=== PATIENT | male | born 1960 | race African-American/Black ===

== ENCOUNTER 2016-11-27 09:55 | Emergency (ER) | payer OTHER ==
[~2016-11-27] VITALS: Ht 172.7 cm; Wt 66.0 kg
[~2016-11-27 09:55] MED LIST: 1-ME1LIQ OR; ALBU6.7H INH; ASPI81TA82 PO; CLON.1T PO; CORE25TA PO; ENAL20TA PO; OMEP20CA5 PO; POTASSIUM; SIMV80TA OR; TEMA15CA PO; TESS200C PO; VITAMIN D; ZITH250T PO
[2016-11-27 09:57] VITALS: BP 181/151; PULSE 92; RESP 17; TEMP 98.2; O2SAT 99
[2016-11-27 09:58] VITALS: BP 150/140
[2016-11-27] MEDS ORDERED: ENALAPRILAT 2.5 MG/2 ML VIAL IV PUSH ONE (10:30)
[2016-11-27 11:02] LABS: AUTOMATED NEUTROPHIL # 3.3 TH/MM3 (1.8-7.7); BASOPHIL # 0.1 TH/MM3 (0-0.2); BASOPHIL % 1.3 % (0.0-2.0); EOSINOPHIL % 0.8 % (0.0-4.0); HEMATOCRIT 47.4 % (39.0-51.0); HEMO FLAGS DIFF FINAL; LYMPH % 20.3 % (9.0-44.0); LYMPHOCYTE # 1.1 TH/MM3 (1.0-4.8); MEAN CELL VOLUME 94.3 FL (80.0-100.0); MEAN CORPUSCULAR HGB CONC 33.9 % (32.0-36.0); MONO % 15.3 % (0.0-8.0); NEUT % 62.3 % (16.0-70.0); PLATELET COUNT 126 TH/MM3 (150-450); RED BLOOD COUNT 5.03 MIL/MM3 (4.50-5.90); RED CELL DISTRIBUTION WIDTH 14.6 % (11.6-17.2); WHITE BLOOD COUNT 5.2 TH/MM3 (4.0-11.0)
[2016-11-27 11:21] LABS: ALKALINE PHOSPHATASE 132 U/L (45-117); ALT (GPT) 16 U/L (12-78); ANION GAP 7 MEQ/L (5-15); AST (GOT) 18 U/L (15-37); BICARBONATE 25.2 MEQ/L (21.0-32.0); BLOOD UREA NITROGEN 13 MG/DL (7-18); CHLORIDE 110 MEQ/L (98-107); GLOMERULAR FILTRATION RATE 64 ML/MIN (>89); POTASSIUM 3.2 MEQ/L (3.5-5.1); SODIUM (NA) 142 MEQ/L (136-145); TOTAL BILIRUBIN ADULT 0.5 MG/DL (0.2-1.0)
[2016-11-27 11:34] VITALS: BP 210/110
[2016-11-27 11:35] VITALS: BP 216/110
[2016-11-27] MEDS ORDERED: AMLO10TA2 PO (11:41)
--- NOTE | 2016-11-27 11:41 | PD ---
HPI Chief Complaint: Hypertension Time Seen by Provider: 10:22 Travel History International Travel<30 days: No Contact w/Intl Traveler<30days: No Traveled to known affect area: No History of Present Illness HPI The 56-year-old man who presents emergency department because of elevated blood pressure. Patient has a history of high blood pressure but hasn't seen a doctor been on medicines for for quite some time because he didn't have insurance. 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 He was told he should come to the emergency department. He otherwise has no symptoms. No headache, no chest pain, no urinary changes. He otherwise has been in his usual state of health. History Past Medical History Narrative Medical Hypertension Peripheral vascular disease Tobacco use Tetanus Vaccination: < 5 Years Influenza Vaccination: No Social History Alcohol Use: No Tobacco Use: Yes (10 per day) Allergies-Medications (Allergen,Severity, Reaction): Coded Allergies: Lasix (Verified Allergy, Severe, SWELLING, 11/27/16) Reported Meds & Prescriptions Reported Meds & Active Scripts Active No Active Prescriptions or Reported Medications Review of Systems Except as stated in HPI: all other systems reviewed are Neg Physical Exam Narrative GENERAL: Well-appearing 56-year-old man, no acute distress. SKIN: Focused skin assessment warm/dry. HEAD: Atraumatic. Normocephalic. EYES: Pupils equal and round. No scleral icterus. No injection or drainage. ENT: No nasal bleeding or discharge. Mucous membranes pink and moist. NECK: Trachea midline. No JVD. CARDIOVASCULAR: Regular rate and rhythm. No murmur appreciated. RESPIRATORY: No accessory muscle use. Clear to auscultation. Breath sounds equal bilaterally. GASTROINTESTINAL: Abdomen soft, non-tender, nondistended. Hepatic and splenic margins not palpable. MUSCULOSKELETAL: No obvious deformities. No clubbing. No cyanosis. No edema. NEUROLOGICAL: Awake and alert. No obvious cranial nerve deficits. Motor grossly within normal limits. Normal speech. PSYCHIATRIC: Appropriate mood and affect; insight and judgment normal. Data Data Last Documented VS Vital Signs Date Time Temp Pulse Resp B/P Pulse Ox O2 Delivery O2 Flow Rate FiO2 11/27/16 11:35 216/110 11/27/16 10:21 17 Room Air 11/27/16 09:57 98.2 92 99 Orders Enalaprilat Inj (Vasotec Inj) (11/27/16 10:30) Amlodipine (Norvasc) (11/27/16 10:30) Complete Blood Count With Diff (11/27/16 10:30) Comprehensive Metabolic Panel (11/27/16 10:30) Electrocardiogram (11/27/16 ) Iv Access Insert/Monitor (11/27/16 10:30) Labs Laboratory Tests Test 11/27/16 10:40 White Blood Count 5.2 TH/MM3 Red Blood Count 5.03 MIL/MM3 Hemoglobin 16.1 GM/DL Hematocrit 47.4 % Mean Corpuscular Volume 94.3 FL Mean Corpuscular Hemoglobin 32.0 PG Mean Corpuscular Hemoglobin 33.9 % Concent Red Cell Distribution Width 14.6 % Platelet Count 126 TH/MM3 Mean Platelet Volume 11.4 FL Neutrophils (%) (Auto) 62.3 % Lymphocytes (%) (Auto) 20.3 % Monocytes (%) (Auto) 15.3 % Eosinophils (%) (Auto) 0.8 % Basophils (%) (Auto) 1.3 % Neutrophils # (Auto) 3.3 TH/MM3 Lymphocytes # (Auto) 1.1 TH/MM3 Monocytes # (Auto) 0.8 TH/MM3 Eosinophils # (Auto) 0.0 TH/MM3 Basophils # (Auto) 0.1 TH/MM3 CBC Comment DIFF FINAL Differential Comment Sodium Level 142 MEQ/L Potassium Level 3.2 MEQ/L Chloride Level 110 MEQ/L Carbon Dioxide Level 25.2 MEQ/L Anion Gap 7 MEQ/L Blood Urea Nitrogen 13 MG/DL Creatinine 1.38 MG/DL Estimat Glomerular Filtration 64 ML/MIN Rate Random Glucose 96 MG/DL Calcium Level 9.3 MG/DL Total Bilirubin 0.5 MG/DL Aspartate Amino Transf 18 U/L (AST/SGOT) Alanine Aminotransferase 16 U/L (ALT/SGPT) Alkaline Phosphatase 132 U/L Total Protein 7.6 GM/DL Albumin 3.9 GM/DL [facility] Medical Decision Making Medical Screen Exam Complete: Yes Emergency Medical Condition: Yes Interpretation(s) My review of EKG: Normal sinus rhythm at a rate of 80, normal axis, normal intervals, anterior precordial ST elevations with lateral T wave inversions suggestive of LVH. P pulmonale. LABS: CBC remarkable for low platelet count. CMP remarkable for mildly elevated creatinine. Differential Diagnosis Symptomatic hypertension, hypertensive crisis, hypertensive urgency, renal failure, other Narrative Course Medical decision making 56-year-old male with markedly elevated blood pressure with no symptoms. Labs and EKG are unremarkable. EKG does show evidence of LVH which is expected. Patient will need for pressure control. He is [facility] now. He should be out of easy follow-up. We'll recommend that he take amlodipine 10 mg as prescribed. He was given a dose of IV enalapril here with good effect and will start amlodipine today and tomorrow. Recommend 48 hour repeat blood pressure check. Diagnosis Primary Impression: Hypertension Additional Instructions: Follow-up with your primary physician or with the [facility] urgent care in 48 hours for repeat blood pressure check. Take amlodipine as prescribed starting tomorrow. Return to the emergency department immediately for any chest pain, trouble breathing, or any other new or worsening symptoms. Med/Other Pt SpecificInfo: Prescription(s) given Scripts Amlodipine 10 Mg Tab10 Mg PO DAILY #30 TAB Ref 0 Prov:Amador Torres MD 11/27/16 Disposition: 01 DISCHARGE HOME Condition: Stable Amador Torres MD Nov 27, 2016 11:41
[2016-11-27 11:47] VITALS: BP 200/100; TEMP 97.8
--- NOTE | 2016-11-28 13:05 | EKG ---
Date Performed: 11/27/2016 Time Performed: 10:50:07 PTAGE: 56 years EKG: Sinus rhythm RIGHT ATRIAL ENLARGEMENT POSSIBLE LEFT ATRIAL ENLARGEMENT T-WAVE ABNORMALITY, CONSIDER LATERAL ISCHE FRANK ABNORMAL ECG PREVIOUS TRACING : 08/15/2012 01.24 Compared to previous tracing, heart rate has increased. DOCTOR: Hoang Banerjee Interpretating Date/Time 11/28/2016 13:05:11
== END 2016-11-27 11:47 | disposition home or self-care (01) ==
LOC: NEPD 09:55
DX: I10 Essential (primary) hypertension (principal); I73.9 Peripheral vascular disease, unspecified; R94.31 Abnormal electrocardiogram [ECG] [EKG]; R04.0 Epistaxis; Z72.0 Tobacco use
CPT/HCPCS: 80053; 85025; 93005; 96374

== ENCOUNTER 2016-12-19 10:33 | Emergency (ER) | payer OTHER ==
[~2016-12-19] VITALS: Ht 172.7 cm; Wt 64.0 kg
[~2016-12-19 10:33] MED LIST changes: -1-ME1LIQ OR; -ALBU6.7H INH; +AMLO10TA2 PO; -ASPI81TA82 PO; -CLON.1T PO; -CORE25TA PO; -ENAL20TA PO; -OMEP20CA5 PO; -POTASSIUM; -SIMV80TA OR; -TEMA15CA PO; -TESS200C PO; -VITAMIN D; -ZITH250T PO
[2016-12-19 10:34] VITALS: BP 184/113; PULSE 67; RESP 16; TEMP 98.5; O2SAT 98
[2016-12-19] MEDS ORDERED: ENAL10TA PO ×2 (10:50)
[2016-12-19] MEDS ORDERED: AMLO10TA2 PO (10:50)
[2016-12-19] MEDS ORDERED: SIMV10TA PO (10:50)
[2016-12-19] MEDS ORDERED: CARV12.52 PO (10:50)
[2016-12-19 10:56] VITALS: BP 183/110
[2016-12-19 11:07] VITALS: BP 172/105
[2016-12-19] MEDS ORDERED: cloNIDine HCL 0.1 MG TAB PO ONE (11:15)
[2016-12-19 11:31] VITALS: BP 159/104
--- NOTE | 2016-12-19 11:47 | PD ---
HPI Chief Complaint: Abnormal Results Time Seen by Provider: 10:47 Travel History International Travel<30 days: No Contact w/Intl Traveler<30days: No Traveled to known affect area: No History of Present Illness HPI Well 56-year-old male presents emergent from complaining of elevated blood pressure leg pain. He is getting claudication symptoms of walking 15-20 feet. He is an appointment with a vascular surgeon been on for another week or so. Blood pressures also been elevated. He just started enalapril. History Past Medical History Narrative Medical Hypertension Peripheral vascular disease Tobacco use Social History Alcohol Use: No Tobacco Use: Yes (5 per day) Allergies-Medications (Allergen,Severity, Reaction): Coded Allergies: Lasix (Verified Allergy, Severe, SWELLING, 12/19/16) Reported Meds & Prescriptions Reported Meds & Active Scripts Active Reported Enalapril (Enalapril Maleate) 10 Mg Tab 10 Mg PO DAILY Enalapril (Enalapril Maleate) 10 Mg Tab 10 Mg PO BID Amlodipine (Amlodipine Besylate) 10 Mg Tab 10 Mg PO DAILY Carvedilol 12.5 Mg Tab 12.5 Mg PO BID Simvastatin 10 Mg Tab 10 Mg PO BID Review of Systems Except as stated in HPI: all other systems reviewed are Neg Physical Exam Narrative GENERAL: Well-appearing 56 year-old woman, no acute distress. SKIN: Warm and dry. CARDIOVASCULAR: Warm and well perfused. RESPIRATORY: Normal rate and effort. MUSCULOSKELETAL: Both legs are warm and well perfused. Pulses are diminished. There are some chest x-ray vascular disease with hair loss. NEUROLOGICAL: Awake and alert. No gross deficits. Data Data Last Documented VS Vital Signs Date Time Temp Pulse Resp B/P Pulse Ox O2 Delivery O2 Flow Rate FiO2 12/19/16 11:31 159/104 12/19/16 10:34 98.5 67 16 98 Room Air Orders Clonidine (Catapres) (12/19/16 11:15) MDM Medical Decision Making Medical Screen Exam Complete: Yes Emergency Medical Condition: Yes Differential Diagnosis Vascular disease, hypertension, arterial especially, other Narrative Course Medical decision making Is a 56-year-old who presents emergent part with leg pain and claudication. He isn't follow-up with vascular disease. There is no acute occlusion arterial insufficiency now. Blood pressures also elevated. He just started on enalapril. I recommended daily enalapril more time. His appointment with his primary physician tomorrow. Diagnosis Primary Impression: Hypertension Additional Impression: Peripheral arterial disease Additional Instructions: Continue current medications. Keep a log of her blood pressures. Follow-up of your primary physician tomorrow as scheduled. Follow-up with vascular surgery as scheduled. Return to the emergency department for any new or worsening symptoms. Stop smoking. Med/Other Pt SpecificInfo: Prescription(s) given Disposition: 01 DISCHARGE HOME Condition: Stable Amador Torres MD December 19, 2016 11:47
[2016-12-19 11:57] VITALS: BP 180/100
== END 2016-12-19 12:17 | disposition home or self-care (01) ==
LOC: NEPD 10:33
DX: I10 Essential (primary) hypertension (principal); I73.9 Peripheral vascular disease, unspecified; Z72.0 Tobacco use
CPT/HCPCS: 99283

== ENCOUNTER 2016-12-23 19:54 | Inpatient (IN) | payer OTHER ==
[~2016-12-23] VITALS: Ht 172.7 cm; Wt 66.8 kg
[~2016-12-23 19:54] MED LIST changes: +CARV12.52 PO; +ENAL10TA PO; +SIMV10TA PO
[2016-12-23 19:56] VITALS: BP 157/92; PULSE 61; RESP 16; TEMP 98.6; O2SAT 99
[2016-12-23] MEDS ORDERED: SODIUM CHLORIDE 0.9% FLUSH 10 ML FLUSH IVF PRN (20:30)
--- NOTE | 2016-12-23 20:34 | PD ---
HPI Chief Complaint: Neuro Symptoms/ Deficits Time Seen by Provider: 20:20 Travel History International Travel<30 days: No Contact w/Intl Traveler<30days: No Traveled to known affect area: No History of Present Illness HPI This is a 56-year-old male with history of hypertension, peripheral vascular disease with intermittent claudication symptoms, presents for evaluation of left arm and leg weakness and numbness. Symptom onset 1 week ago. He reports that he feels subtle weakness when for example holding drinks or lifting things with his left arm as well as when he is walking he feels like he is dragging his leg some. He says that this is different from his baseline burning pain that he has in the left leg with longer walks secondary to his peripheral vascular disease. He denies any headache, blurred vision, facial droop, dizziness, lack of coordination, nausea or vomiting, chest pain or shortness of breath, abdominal pain. No history of CVA in the past. No other complaints. PFSH Past Medical History Asthma: Yes Blood Disorders: No Cancer: No Cardiovascular Problems: Yes (STENTS PLACED) High Cholesterol: Yes Chemotherapy: No Diminished Hearing: No Endocrine: No Gastrointestinal Disorders: Yes GERD: Yes Genitourinary: No Hypertension: Yes Inguinal Hernia: Yes Musculoskeletal: No Neurologic: No Psychiatric: No Reproductive: No Respiratory: No Radiation Therapy: No Past Surgical History Abdominal Surgery: Yes (HERNIA INGINAL L) AICD: No Arteriovenous Shunt: No Coronary Stent: Yes (BARD LUMINEXX BILIARY STENT PLACED 07-12) Insulin Pump: No Joint Replacement: No Pacemaker: No Other Surgery: Yes (BARD LUMINEXX BILIARY STENT PLACED 07-12) Social History Alcohol Use: No Tobacco Use: Yes (1/2PPD) Substance Use: No Allergies-Medications (Allergen,Severity, Reaction): Coded Allergies: Lasix (Verified Allergy, Severe, SWELLING, 12/24/16) Reported Meds & Prescriptions Reported Meds & Active Scripts Active Reported Enalapril (Enalapril Maleate) 10 Mg Tab 10 Mg PO DAILY Amlodipine (Amlodipine Besylate) 10 Mg Tab 10 Mg PO DAILY Carvedilol 12.5 Mg Tab 12.5 Mg PO BID Simvastatin 10 Mg Tab 10 Mg PO BID Review of Systems Except as stated in HPI: all other systems reviewed are Neg Physical Exam Narrative GENERAL: Pleasant well-developed well-nourished male in no acute distress SKIN: Warm and dry. HEAD: Atraumatic. Normocephalic. EYES: Pupils equal and round. No scleral icterus. No injection or drainage. ENT: No nasal bleeding or discharge. Mucous membranes pink and moist. NECK: Trachea midline. No JVD. CARDIOVASCULAR: Regular rate and rhythm. No murmur appreciated. RESPIRATORY: No accessory muscle use. Clear to auscultation. Breath sounds equal bilaterally. GASTROINTESTINAL: Abdomen soft, non-tender, nondistended. Hepatic and splenic margins not palpable. MUSCULOSKELETAL: No obvious deformities. 4 out of 5 muscle strength left hip flexion, left arm flexion and extension. 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 2+ dorsalis pedis and posterior tibial pulses bilaterally. No lower extremity edema. NEUROLOGICAL: Awake and alert. No obvious cranial nerve deficits. Motor grossly within normal limits. Normal speech. PSYCHIATRIC: Appropriate mood and affect; insight and judgment normal. Data Data Last Documented VS Vital Signs Date Time Temp Pulse Resp B/P Pulse Ox O2 Delivery O2 Flow Rate FiO2 12/23/16 22:57 58 16 160/77 98 12/23/16 20:41 Room Air 12/23/16 19:56 98.6 Orders Electrocardiogram (12/23/16 20:30) Prothrombin Time / Inr (Pt) (12/23/16 20:30) Act Partial Throm Time (Ptt) (12/23/16 20:30) Complete Blood Count With Diff (12/23/16 20:30) Comprehensive Metabolic Panel (12/23/16 20:30) Creatine Kinase (Cpk) (12/23/16 20:30) Troponin I (12/23/16 20:30) Ecg Monitoring (12/23/16 20:30) Iv Access Insert/Monitor (12/23/16 20:30) Oximetry (12/23/16 20:30) Sodium Chloride 0.9% Flush (Ns Flush) (12/23/16 20:30) Mri Brain W/O Contrast (12/23/16 ) Consult Neurology (12/23/16 ) Admit Order (Ed Use Only) (12/23/16 23:09) Labs Laboratory Tests Test 12/23/16 19:37 White Blood Count 6.2 TH/MM3 Red Blood Count 4.87 MIL/MM3 Hemoglobin 15.1 GM/DL Hematocrit 45.1 % Mean Corpuscular Volume 92.7 FL Mean Corpuscular Hemoglobin 31.0 PG Mean Corpuscular Hemoglobin 33.5 % Concent Red Cell Distribution Width 14.4 % Platelet Count 169 TH/MM3 Mean Platelet Volume 10.4 FL Neutrophils (%) (Auto) 56.8 % Lymphocytes (%) (Auto) 30.8 % Monocytes (%) (Auto) 8.2 % Eosinophils (%) (Auto) 2.8 % Basophils (%) (Auto) 1.4 % Neutrophils # (Auto) 3.5 TH/MM3 Lymphocytes # (Auto) 1.9 TH/MM3 Monocytes # (Auto) 0.5 TH/MM3 Eosinophils # (Auto) 0.2 TH/MM3 Basophils # (Auto) 0.1 TH/MM3 CBC Comment DIFF FINAL Differential Comment Prothrombin Time 10.8 SEC Prothromb Time International 1.0 RATIO Ratio Activated Partial 29.0 SEC Thromboplast Time Sodium Level 144 MEQ/L Potassium Level 3.5 MEQ/L Chloride Level 109 MEQ/L Carbon Dioxide Level 27.2 MEQ/L Anion Gap 8 MEQ/L Blood Urea Nitrogen 14 MG/DL Creatinine 1.32 MG/DL Estimat Glomerular Filtration 68 ML/MIN Rate Random Glucose 87 MG/DL Calcium Level 9.1 MG/DL Total Bilirubin 0.5 MG/DL Aspartate Amino Transf 13 U/L (AST/SGOT) Alanine Aminotransferase 14 U/L (ALT/SGPT) Alkaline Phosphatase 125 U/L Total Creatine Kinase 85 U/L Troponin I LESS THAN 0.02 NG/ML Total Protein 7.1 GM/DL Albumin 3.7 GM/DL [facility] Medical Decision Making Medical Screen Exam Complete: Yes Emergency Medical Condition: Yes Medical Record Reviewed: Yes Interpretation(s) ekg sinus bradycardia, rate 53 Differential Diagnosis Plexopathy, radiculopathy, peripheral vascular disease, CVA, TIA Narrative Course 56-year-old male with left arm and leg weakness and numbness for 1 week, no other neurologic deficits. On examination he has 4-5 muscle strength in the left upper and lower extremity, primarily in left hip flexion and left arm flexion and extension. Lab work reveals a creatinine of 1.32. MRI of the brain reveals a small focal area of acute lacunar infarct of the medial right basal ganglia. Neurology will be consult. The patient does currently take a baby aspirin on a daily basis. Dr. Mcgarry discussed with the on-call neurologist Dr. Hurtado who would like the patient to be admitted. The patient is agreeable. Diagnosis Primary Impression: CVA (cerebral vascular accident) Qualified Code: I63.9 - Cerebrovascular accident (CVA), unspecified mechanism Admitting Information Admitting Physician Requests: Admit Dm Turner December 23, 2016 20:34
[2016-12-23 20:41] VITALS: BP 155/95; PULSE 65; RESP 16; O2SAT 98
[2016-12-23 21:01] LABS: AUTOMATED NEUTROPHIL # 3.5 TH/MM3 (1.8-7.7); BASOPHIL # 0.1 TH/MM3 (0-0.2); BASOPHIL % 1.4 % (0.0-2.0); EOSINOPHIL # 0.2 TH/MM3 (0-0.4); EOSINOPHIL % 2.8 % (0.0-4.0); HEMATOCRIT 45.1 % (39.0-51.0); HEMO FLAGS DIFF FINAL; LYMPH % 30.8 % (9.0-44.0); LYMPHOCYTE # 1.9 TH/MM3 (1.0-4.8); MEAN CELL VOLUME 92.7 FL (80.0-100.0); MEAN CORPUSCULAR HGB CONC 33.5 % (32.0-36.0); MONO % 8.2 % (0.0-8.0); NEUT % 56.8 % (16.0-70.0); PLATELET COUNT 169 TH/MM3 (150-450); RED BLOOD COUNT 4.87 MIL/MM3 (4.50-5.90); RED CELL DISTRIBUTION WIDTH 14.4 % (11.6-17.2); WHITE BLOOD COUNT 6.2 TH/MM3 (4.0-11.0)
[2016-12-23 21:14] LABS: PROTHROMBIN TIME - PATIENT 10.8 SEC (9.8-11.6)
[2016-12-23 21:24] LABS: ANION GAP 8 MEQ/L (5-15); AST (GOT) 13 U/L (15-37); BICARBONATE 27.2 MEQ/L (21.0-32.0); BLOOD UREA NITROGEN 14 MG/DL (7-18); CHLORIDE 109 MEQ/L (98-107); GLOMERULAR FILTRATION RATE 68 ML/MIN (>89); POTASSIUM 3.5 MEQ/L (3.5-5.1); SODIUM (NA) 144 MEQ/L (136-145)
[2016-12-23 21:29] LABS: ALKALINE PHOSPHATASE 125 U/L (45-117); ALT (GPT) 14 U/L (12-78); TOTAL BILIRUBIN ADULT 0.5 MG/DL (0.2-1.0)
[2016-12-23 21:30] LABS: CREATINE KINASE 85 U/L (39-308)
--- NOTE | 2016-12-23 22:25 | RADRPT ---
EXAM DATE/TIME: 12/23/2016 21:34 [facility] COMPARISON: No previous studies available for comparison. INDICATIONS : Left sided weakness. MEDICAL HISTORY : Hypertension. Peripheral vascular disease. SURGICAL HISTORY : Inguinal hernia repair. ENCOUNTER: Initial ACUITY: 1 day PAIN SCORE: 0/10 LOCATION: cranial TECHNIQUE: Multiplanar, multisequence MRI of the brain was performed without contrast. FINDINGS: CEREBRUM: The ventricles are normal for age. There is a small 0.7 cm area of signal abnormality on the diffusi on weighted images seen at the medial right basal ganglia/genu of the internal capsule. This likely r epresents a recent acute lacunar infarct. Immediately superior to this, there appears to be a 1.2 cm area of prior infarction. This is seen as a cystic area primarily involving the right periventricular white matter and caudate. There is some suspected gliosis seen as increased signal on the flair felipe ges around the old infarct. No evidence of midline shift, mass lesion, hemorrhage. No extraaxial flu id collections are seen. The pituitary gland and suprasellar cistern are normal in configuration. WHITE MATTER: There are scattered areas of focal signal abnormality within the cerebral white matter. POSTERIOR FOSSA: The cerebellum and brainstem are intact. The 4th ventricle is midline. The cerebellopontine angle is unremarkable. The cerebellar tonsils are normal in position. EXTRACRANIAL: The visualized portions of the orbits are unremarkable. There is focal right maxillary sinus disease. CONCLUSION: Small focal area of acute lacunar infarction at the medial right basal ganglia/genu of the internal c apsule. This is seen adjacent to an older area of infarction involving the right periventricular whit e matter and caudate with surrounding suspected gliosis. Eduardo Mckeon MD on December 23, 2016 at 22:16 Board Certified Radiologist. This report was verified electronically.
[2016-12-23 22:57] VITALS: BP 160/77; PULSE 58; RESP 16; O2SAT 98
--- NOTE | 2016-12-23 23:22 | HHI.HP ---
HPI Service [facility] Hospitalists Primary Care Physician Ambreen Perry MD Admission Diagnosis CVA Chief Complaint: 1 week left upper and lower extremity weakness Travel History International Travel<30 Days: No Contact w/Intl Traveler <30 Da: No Traveled to Known Affected Are: No History of Present Illness This is a 56-year-old male with history of hypertension, peripheral vascular disease with intermittent claudication symptoms, presents for evaluation of left arm and leg weakness and numbness. Symptom onset 1 week ago. He reports that he feels subtle weakness when for example holding drinks or lifting things with his left arm as well as when he is walking he feels like he is dragging his leg some. He says that this is different from his baseline burning pain that he has in the left leg with longer walks secondary to his peripheral vascular disease. He denies any headache, blurred vision, facial droop, dizziness, lack of coordination, nausea or vomiting, chest pain or shortness of breath, abdominal pain. No history of CVA in the past. No other complaints. Patient had MRI in er which showed acute cva lacunar infarct rt basal ganglion, case discussed with neurology increase asa to 325 and admit for further evaluation. Review of Systems Neurologic: COMPLAINS OF: Localized weakness Past Family Social History Past Medical History hypertension,hyperlipidemia,cad gerd Past Surgical History lt hernia,stent Reported Medications [id number],norvasc 10 coreg 12.5 bid,simvasatin 10 bid Allergies: Coded Allergies: Lasix (Verified Allergy, Severe, SWELLING, 12/23/16) Social History smokes 1/2 ppd Physical Exam Vital Signs Vital Signs Date Time Temp Pulse Resp B/P Pulse Ox O2 Delivery O2 Flow Rate FiO2 12/23/16 22:57 58 16 160/77 98 12/23/16 20:41 98 Room Air 12/23/16 20:41 65 16 155/95 98 Room Air 12/23/16 20:41 65 16 155/95 98 Room Air 12/23/16 19:56 98.6 61 16 157/92 99 Room Air Physical Exam GENERAL: This is a well-nourished, well-developed patient, in no apparent distress. SKIN: No rashes, ecchymoses or lesions. Cool and dry. HEAD: Atraumatic. Normocephalic. No temporal or scalp tenderness. EYES: Pupils equal round and reactive. Extraocular motions intact. No scleral icterus. No injection or drainage. ENT: Nose without bleeding, purulent drainage or septal hematoma. Throat without erythema, tonsillar hypertrophy or exudate. Uvula midline. Airway patent. NECK: Trachea midline. No JVD or lymphadenopathy. Supple, nontender, no meningeal signs. CARDIOVASCULAR: Regular rate and rhythm without murmurs, gallops, or rubs. RESPIRATORY: Clear to auscultation. Breath sounds equal bilaterally. No wheezes , rales, or rhonchi. GASTROINTESTINAL: Abdomen soft, non-tender, nondistended. No hepato-splenomegaly , or palpable masses. No guarding. MUSCULOSKELETAL: Extremities without clubbing, cyanosis, or edema. No joint tenderness, effusion, or edema noted. No calf tenderness. Negative Homans sign bilaterally. NEUROLOGICAL: Awake and alert. Cranial nerves II through XII intact. Motor and sensory grossly within normal limits. 4 out of 5 muscle strength rt upper and lower extremities Normal speech. Laboratory Laboratory Tests Test 12/23/16 19:37 White Blood Count 6.2 Red Blood Count 4.87 Hemoglobin 15.1 Hematocrit 45.1 Mean Corpuscular Volume 92.7 Mean Corpuscular Hemoglobin 31.0 Mean Corpuscular Hemoglobin 33.5 Concent Red Cell Distribution Width 14.4 Platelet Count 169 Mean Platelet Volume 10.4 Neutrophils (%) (Auto) 56.8 Lymphocytes (%) (Auto) 30.8 Monocytes (%) (Auto) 8.2 Eosinophils (%) (Auto) 2.8 Basophils (%) (Auto) 1.4 Neutrophils # (Auto) 3.5 Lymphocytes # (Auto) 1.9 Monocytes # (Auto) 0.5 Eosinophils # (Auto) 0.2 Basophils # (Auto) 0.1 CBC Comment DIFF FINAL Differential Comment Prothrombin Time 10.8 Prothromb Time International 1.0 Ratio Activated Partial 29.0 Thromboplast Time Sodium Level 144 Potassium Level 3.5 Chloride Level 109 Carbon Dioxide Level 27.2 Anion Gap 8 Blood Urea Nitrogen 14 Creatinine 1.32 Estimat Glomerular Filtration 68 Rate Random Glucose 87 Calcium Level 9.1 Total Bilirubin 0.5 Aspartate Amino Transf 13 (AST/SGOT) Alanine Aminotransferase 14 (ALT/SGPT) Alkaline Phosphatase 125 Total Creatine Kinase 85 Troponin I LESS THAN 0.02 Total Protein 7.1 Albumin 3.7 Result Diagram: 12/23/16193612/23/161936 Imaging Last 24 hours Impressions Brain MRI 12/23/16 0000 Signed Impressions: Service Date/Time: Friday, December 23, 2016 21:34 - CONCLUSION: Small focal area of acute lacunar infarction at the medial right basal ganglia/genu of the internal capsule. This is seen adjacent to an older area of infarction involving the right periventricular white matter and caudate with surrounding suspected gliosis. Eduardo Mckeon MD Assessment and Plan Problem List: (1) CVA (cerebral vascular accident) Status: Acute Plan: start full asa neurology consulted will start work up as per neurology (2) Hypertension Status: Chronic Plan: continue current BP medication Assessment and Plan further plan as case develops Code Status full Discussed Condition With patient Physician Certification 2 Midnight Certification Type: Admission for Inpatient Services Order for Inpatient Services The services are ordered in accordance with Medicare regulations or non- Medicare payer requirements, as applicable. In the case of services not specified as inpatient-only, they are appropriately provided as inpatient services in accordance with the 2-midnight benchmark. Estimated LOS (days): 3 3 days is the estimated time the patient will need to remain in the hospital, assuming treatment plan goals are met and no additional complications. Post-Hospital Plan: Not yet determined Problem Qualifiers (1) CVA (cerebral vascular accident): Qualified Code: I63.9 - Cerebrovascular accident (CVA), unspecified mechanism (2) Hypertension: Qualified Code: I15.9 - Secondary hypertension Sunny Kaiser MD December 23, 2016 23:22
[2016-12-24] VITALS (9 sets, daily range): BP systolic 130–177; BP diastolic 69–102; PULSE 55–64; RESP 16–19; TEMP 96.7–98; O2SAT 98–100
[2016-12-24] MEDS ORDERED: SODIUM CHLORIDE 0.9% FLUSH 10 ML FLUSH IV FLUSH PRN
[2016-12-24] MEDS ORDERED: NALOXONE HCL 0.4 MG/ML AMP IV PRN
[2016-12-24] MEDS ORDERED: ENALAPRILAT 1.25 MG/ML VIAL IV PUSH PRN
[2016-12-24] MEDS ORDERED: BISACODYL 10 MG SUPP RECTAL PRN
[2016-12-24 05:56] LABS: BICARBONATE 27.4 MEQ/L (21.0-32.0); POTASSIUM 3.4 MEQ/L (3.5-5.1)
--- NOTE | 2016-12-24 08:17 | RADRPT ---
EXAM DATE/TIME: 12/24/2016 07:33 [place] COMPARISON: MRI BRAIN W/O CONTRAST, December 23, 2016, 21:34. INDICATIONS : Left sided weakness. CONTRAST: 20 cc Omniscan (gadodiamide) IV MEDICAL HISTORY : Peripheral vascular disease. Hypertension. SURGICAL HISTORY : Inguinal hernia repair. ENCOUNTER: Initial ACUITY: 2 day PAIN SCORE: 0/10 LOCATION: cranial Percent stenosis is calculated using the diameter of the stenotic region over the diameter of the nor mal distal internal carotid artery. TECHNIQUE: Bolus infused MRA of the extracranial circulation was performed using a neurovascular coil. Post pro cessing was performed including rotating subvolume maximum intensity projections of each carotid marco ry, rotating full volume maximum intensity projections of both carotid arteries, sagittal and coronal sliding thin slab reformations of each carotid artery, and left oblique sliding thin slab reformatio n through the aortic arch to include the origin of the arch branch vessels. FINDINGS: AORTIC ARCH: There is a three vessel origin of the great vessels from the aorta. No evidence of ostial narrowing. Left vertebral artery arises directly off the aortic arch. RIGHT CAROTID: The common carotid artery is intact. The carotid bulb has a normal configuration without ulceration or narrowing. The internal carotid artery lumen is smooth without stenosis. The external carotid ar benigno is intact. LEFT CAROTID: The common carotid artery is intact. The carotid bulb has a normal configuration without ulceration or narrowing. The internal carotid artery lumen is smooth without stenosis. The external carotid ar benigno is intact. VERTEBRALS: The vertebral arteries have a symmetric diameter. No stenotic lesions are seen. CONCLUSION: 1. Bilateral carotid arteries are widely patent. Khari Mcleod MD on December 24, 2016 at 8:14 Board Certified Radiologist. This report was verified electronically.
[2016-12-24] MEDS ORDERED: GADODIAMIDE PF 287 MG/ML 20 ML VIAL (for RAD MRI) IV ONE (08:23)
[2016-12-24] MEDS: CARVEDILOL 12.5 MG TAB PO SCH ×2 (08:51→22:20)
[2016-12-24] MEDS: SODIUM CHLORIDE 0.9% FLUSH 10 ML FLUSH IV FLUSH SCH ×2 (08:51→22:20)
[2016-12-24] MEDS: PRAVASTATIN SOD 20 MG TAB PO SCH ×2 (08:51→22:20)
[2016-12-24] MEDS: ASPIRIN 325 MG TAB PO SCH (08:51)
[2016-12-24] MEDS: ENALAPRIL MALEATE 10 MG TAB PO SCH (08:51)
--- NOTE | 2016-12-24 15:54 | HHI.PR ---
Subjective Remarks lue and lle stronger. was oob today. Objective Vitals oriented reg lung cta abd s/nt ext no edema Vital Signs Date Time Temp Pulse Resp B/P Pulse Ox O2 Delivery O2 Flow Rate FiO2 12/24/16 10:59 64 12/24/16 08:00 97.5 59 18 175/102 99 12/24/16 04:00 97.0 60 19 154/89 99 12/24/16 02:23 55 12/24/16 01:00 96.7 60 18 177/96 100 12/23/16 22:57 58 16 160/77 98 12/23/16 20:41 98 Room Air 12/23/16 20:41 65 16 155/95 98 Room Air 12/23/16 20:41 65 16 155/95 98 Room Air 12/23/16 19:56 98.6 61 16 157/92 99 Room Air 12/23/16 12/23/16 12/24/16 15:00 23:00 07:00 Intake Total 240 ml Output Total 250 ml Balance -10 ml Intake Oral 240 ml Output Urine Total 250 ml # Bowel Movements 0 Result Diagram: 12/23/16 1937 12/24/16 0456 Imaging Last 24 hours Impressions Brain MRI 12/23/16 0000 Signed Impressions: Service Date/Time: Friday, December 23, 2016 21:34 - CONCLUSION: Small focal area of acute lacunar infarction at the medial right basal ganglia/genu of the internal capsule. This is seen adjacent to an older area of infarction involving the right periventricular white matter and caudate with surrounding suspected gliosis. Eduardo Mckeon MD A/P Problem List: (1) CVA (cerebral vascular accident) Status: Acute Plan: Pt is 56 yo with htn, cva, pad presents with several days of left upper extremity weakness/clumsiness and "dragging left leg. MRI found acute right basal ganglia acute cva next to old area of cva. presumed related to local atherosclerosis/htn. no hx of afib. carotids no dz. Currently his lue and lle strength improving Pt was placed back on bp meds yesterday in ED. will need overall improved control on statin ED called neuro and asa dose increased..?plavix tele and echo for eval of afib and thrombus pending. PT eval today neuro eval pending. dvt prophylaxis. (2) Hypertension Status: Chronic Plan: home meds (3) Peripheral arterial disease Status: Chronic Plan: hx jay iliac stenting. Problem Qualifiers (1) CVA (cerebral vascular accident): Qualified Code: I63.9 - Cerebrovascular accident (CVA), unspecified mechanism (2) Hypertension: Qualified Code: I15.9 - Secondary hypertension Erick Dillard MD December 24, 2016 15:54
[2016-12-24] MEDS ORDERED: POTASSIUM CHLORIDE 20 MEQ CONTROLLED RELEASE TAB PO ONE (16:00)
--- NOTE | 2016-12-24 17:01 | EKG ---
Date Performed: 12/23/2016 Time Performed: 20:55:55 PTAGE: 56 years EKG: SINUS BRADYCARDIA NONSPECIFIC ST & T-WAVE ABNORMALITY BORDERLINE ECG PREVIOUS TRACING : 11/27/2016 10.50 Compared to prior tracing no significant change DOCTOR: Caitlin Galicia Interpretating Date/Time 12/24/2016 16:59:56
[2016-12-25] VITALS (7 sets, daily range): BP systolic 145–178; BP diastolic 83–113; PULSE 54–71; RESP 16–18; TEMP 95.3–98.7; O2SAT 99–100
--- NOTE | 2016-12-25 06:14 | MB ---
cc: ROSA LOVE DATE OF CONSULTATION 12/24/2016 REASON FOR CONSULTATION Stroke. HISTORY OF PRESENT ILLNESS Mr. Bruner is a 56-year-old -[place] male with a past medical history of hypertension, peripheral vascular disease, stenting of legs, presented to [facility] with for evaluation of left upper and lower weakness that started on . The patient states that there was associated pain and he thought this was due to his blood pressure and the weakness persisted and he reported to the ER on Sunday for the same weakness. He denies headache, double vision, blurred vision, speech difficulty. However, he was noted to be slurring his speech. He denies facial numbness or droopiness. However, he has noticeable left facial weakness. He denies any history of stroke in the past. The patient takes aspirin 81 mg daily. ER physicial called and I recommended to admit the patient for further workup and to increase aspirin to 325 mg. The patient was on aspirin 81 before the stroke. REVIEW OF SYSTEMS A 12-point review of systems is negative except what is stated in the HPI. PAST MEDICAL HISTORY 1. Hypertension. 2. Hyperlipidemia. 3. Coronary artery disease. 4. Gastroesophageal reflux disease. 5. Peripheral vascular disease. PAST SURGICAL HISTORY Hernia and stenting of lower extremities. MEDICATIONS 1. Elavil. 2. Norvasc. 3. Coreg. 4. Simvastatin. 5. Aspirin 81. ALLERGIES LASIX. SOCIAL HISTORY Smokes half pack a day. Denies alcohol and illicit drugs. FAMILY HISTORY Noncontributory. PHYSICAL EXAMINATION GENERAL: Awake, alert, oriented, good historian, pleasant, not in acute distress. HEENT: Atraumatic, normocephalic. Intact hearing. Intact vision. RESPIRATORY: Clear to auscultation. No wheezes. CARDIOVASCULAR: Normal sinus rhythm. ABDOMEN: Soft, nontender. MUSCULOSKELETAL: No clubbing, cyanosis or edema. all extremities. NEUROLOGICAL: Awake, alert, oriented to time, person and place. Mild dysarthria. No dysphagia. Cranial nerves II-XII are intact but with subtle left facial palsy. Motor examination with left elbow extension, wrist extension, foot dorsiflexion 5-/5. The rest of the muscle examination of was 5/5. Reflexes 2+ bilateral, symmetrical. Plantars bilaterally downgoing. Sensation bilaterally intact, symmetrical. Ndisxv-dm-jwbv, mxjd-tp-bpnc is intact. PSYCHOLOGICAL: Intact mood and behavior. No hallucinations. LABORATORY DATA White blood cell 6.2, hemoglobin 151, MCV 92.7, platelets 169. INR 1. Sodium 144 , potassium 3.5, anion gap 8, calcium 9.1. Normal LFTs. Albumin 3.7. DIAGNOSTIC IMAGING - Brain MRI revealed small focal area of acute lacunar infarction at the medial right basal ganglia/genu of the internal capsule. This is seen adjacent to another area of infarction involving the right periventricular white matter and caudate with surrounding suspected gliosis. - Neck MRA - Bilateral carotid arteries are widely patent. DIAGNOSTIC IMPRESSION 1. Acute ischemic stroke right, perforating branches of the right MCA. 2. Uncontrolled hypertension. 3. Hyperlipidemia. 4. Peripheral vascular disease. PLAN 1. Neuro checks q. 4 hour. 2. Aspirin 325 mg daily. The patient was on aspirin 81 mg before the stroke. 3. There is no role for permissive hypertension as symptoms began three days ago. 4. DVT prophylaxis. 5. GI prophylaxis. 6. PT and OT recommendations are appreciated. 7. Cardiac echo. Thank you for the opportunity to participate in the care of your patient. MD MARGY Crouch/KEVIN /11:31 PM /5:50 AM MTDD
[2016-12-25 08:02] LABS: BICARBONATE 24.3 MEQ/L (21.0-32.0); POTASSIUM 3.8 MEQ/L (3.5-5.1)
[2016-12-25] MEDS: CARVEDILOL 12.5 MG TAB PO SCH ×2 (08:43→20:36)
[2016-12-25] MEDS: ASPIRIN 325 MG TAB PO SCH (08:43)
[2016-12-25] MEDS: ENALAPRIL MALEATE 10 MG TAB PO SCH (08:43)
[2016-12-25] MEDS: PRAVASTATIN SOD 20 MG TAB PO SCH ×2 (08:43→20:36)
[2016-12-25] MEDS: SODIUM CHLORIDE 0.9% FLUSH 10 ML FLUSH IV FLUSH SCH ×2 (08:54→20:35)
--- NOTE | 2016-12-25 12:10 | EC ---
Study Study Date:12/24/2016 STUDY CONCLUSIONS SUMMARY - Left ventricle: The cavity size was normal. Wall thickness was at the upper limits of normal. Systolic function was normal. The estimated ejection fraction was in the range of 60% to 65%. Wall motion was normal; there were no regional wall motion abnormalities. - Aortic valve: Valve area: 2.9cm^2 (Vmax). - Mitral valve: Mildly calcified annulus. Impressions: No cardiac source of emboli was indentified. If LV function is below 40, please consider prescribing an ACEI or ARB or document rationale for non-use. PROCEDURE DATA STUDY STATUS: Elective. Procedure: Transthoracic echocardiography. Image quality was good. Scanning was performed from the parasternal, apical, and subcostal acoustic windows. Study completion: The patient tolerated the procedure well. Transthoracic echocardiography. M-mode, complete 2D, complete spectral Doppler, and color Doppler. Height: Height: 68in. Weight: Weight: 142.7lb. Body mass index: BMI: 21.7kg/m^2. Body surface area: BSA: 1.77m^2. Patient status: Inpatient. CARDIAC ANATOMY LEFT VENTRICLE: The cavity size was normal. Wall thickness was at the upper limits of normal. Systolic function was normal. The estimated ejection fraction was in the range of 60% to 65%. Wall motion was normal; there were no regional wall motion abnormalities. AORTIC VALVE: Trileaflet; normal thickness leaflets. Doppler: Transvalvular velocity was within the normal range. There was no stenosis. No regurgitation. Valve area: 2.9cm^2 (Vmax). Indexed valve area: 1.64cm^2/m^2 (Vmax). AORTA: Aortic root: The aortic root was normal in size. MITRAL VALVE: Mildly calcified annulus. Doppler: Transvalvular velocity was within the normal range. There was no evidence for stenosis. No regurgitation. Valve area by pressure half-time: 3.06cm^2. Indexed valve area by pressure half-time: 1.73cm^2/m^2. LEFT ATRIUM: The atrium was normal in size. RIGHT VENTRICLE: The cavity size was normal. Wall thickness was normal. PULMONIC VALVE: Doppler: Transvalvular velocity was within the normal range. There was no evidence for stenosis. No regurgitation. TRICUSPID VALVE: Structurally normal valve. Doppler: Transvalvular velocity was within the normal range. No regurgitation. PULMONARY ARTERY: The main pulmonary artery was normal-sized. Systolic pressure was within the normal range. RIGHT ATRIUM: The atrium was normal in size. PERICARDIUM: There was no pericardial effusion. SYSTEMIC VEINS: Inferior vena cava: The vessel was normal in size. Patient weight: 142.7lb _Ejection fraction:_ 65-75% _Fractional shortening:_ 32% up to 5Kg 5-11.5Kg 11.6-22.9Kg 23-45Kg 45-57Kg Aortic Root 7-13 <17 13-22 17-27 17-27 LA diam 6-13 <23 24-38 33-47 37-40 RVID 10-17 7-15 7-15 7-18 8-17 LVIDd 12-22 <32 24-38 33-47 37-40 LVPW 2-4 3-6 5-7 6-8 7-8 IVS 2-4 3-6 5-7 6-8 7-8 BASIC MEASUREMENTS ADULT NORMAL Left ventricle LV internal dimension, ED, chordal *36.5 mm 43-52 level, PLAX LV internal dimension, ES, chordal 23.3 mm 23-38 level, PLAX Fractional shortening, chordal level, 36 % >29 PLAX LV posterior wall thickness, ED 10.9 mm IVS/LVPW ratio, ED 1 <1.3 Ventricular septum Septal thickness, ED 10.9 mm Aortic valve Leaflet separation 21 mm 15-26 Left atrium Anterior-posterior dimension 30 mm Anterior-posterior dimension index 1.69 cm/m^2 <2.2 BASIC MEASUREMENTS ADULT NORMAL Aortic valve Leaflet separation 21 mm 15-26 Aorta Root diameter, ED 31 mm 20-37 DOPPLER MEASUREMENTS ADULT NORMAL Aortic valve Peak velocity, S 144 cm/s Valve area, Vmax 2.9 cm^2 Valve area index, Vmax 1.64 cm^2/m^2 Mitral valve Peak E-wave velocity 54.3 cm/s Peak A-wave velocity 56.3 cm/s Pressure half-time 72 ms Peak E/A ratio 1 Valve area, pressure half-time 3.06 cm^2 Valve area index, pressure half-time 1.73 cm^2/m^2 LEGEND: Mean values are shown as u=mean value. Asterisk (*) lucio values outside specified normal range. Prepared and signed by Caitlin Galicia [id number]
--- NOTE | 2016-12-25 14:13 | HHI.PR ---
Subjective Remarks No new complaints. Objective Vitals Vital Signs Date Time Temp Pulse Resp B/P Pulse Ox O2 Delivery O2 Flow Rate FiO2 12/25/16 11:46 98.7 61 17 155/99 99 12/25/16 08:00 95.3 70 17 164/113 100 12/25/16 04:00 97.1 60 17 177/100 100 12/25/16 00:00 97.4 71 16 169/98 100 12/24/16 20:00 62 12/24/16 19:00 97.8 57 16 167/69 98 12/24/16 18:55 Room Air 12/24/16 16:00 98.0 55 18 130/84 98 12/24/16 12/24/16 12/25/16 15:00 23:00 07:00 Intake Total 600 ml 480 ml 480 ml Output Total 3 ml Balance 600 ml 477 ml 480 ml Intake Oral 600 ml 480 ml 480 ml Output Urine Total 3 ml # Voids 4 3 # Bowel Movements 1 0 0 Result Diagram: 12/23/16 1937 12/25/16 0644 Imaging Last 24 hours Impressions Brain MRI 12/23/16 0000 Signed Impressions: Service Date/Time: Friday, December 23, 2016 21:34 - CONCLUSION: Small focal area of acute lacunar infarction at the medial right basal ganglia/genu of the internal capsule. This is seen adjacent to an older area of infarction involving the right periventricular white matter and caudate with surrounding suspected gliosis. Eduardo Mckeon MD Objective Remarks GENERAL: This is a well-nourished, well-developed patient, in no apparent distress. CARDIOVASCULAR: Regular rate and rhythm without murmurs, gallops, or rubs. RESPIRATORY: Clear to auscultation. Breath sounds equal bilaterally. No wheezes , rales, or rhonchi. GASTROINTESTINAL: Abdomen soft, non-tender, nondistended. Normal active bowel sounds MUSCULOSKELETAL: Extremities without clubbing, cyanosis, or edema. NEURO: Alert & Oriented x4 to person, place, time, situation. Moves all ext x4 A/P Problem List: (1) CVA (cerebral vascular accident) Status: Acute Plan: Pt is 56 yo with htn, cva, pad presents with several days of left upper extremity weakness/clumsiness and "dragging left leg. MRI found acute right basal ganglia acute cva next to old area of cva. presumed related to local atherosclerosis/htn. no hx of afib. carotids no dz. - comgmt with Neurology - Currently his lue and lle strength improving - ASA - start plavix - Tele: NSR - await echocardiogram (12/24/16) EF 60-65% - obtain holter - fasting lipid panel in AM - pravachol - need improved BP control prior to discharge - change norvsc to procardia xl - PT - anticipate d/c to home in 1-2 days dvt prophylaxis. (2) Hypertension Status: Chronic Plan: - see above (3) Peripheral arterial disease Status: Chronic Plan: hx jay iliac stenting. Problem Qualifiers (1) CVA (cerebral vascular accident): Qualified Code: I63.9 - Cerebrovascular accident (CVA), unspecified mechanism (2) Hypertension: Qualified Code: I15.9 - Secondary hypertension German Escalante DO December 25, 2016 14:13
[2016-12-25] MEDS: NIFEdipine 60 MG SUSTAINED RELEASE TAB PO SCH (16:13)
--- NOTE | 2016-12-25 19:50 | HHI.PR ---
Review/Management Diagnosis - Acute ischemic stroke right, perforating branches of the right MCA. - Uncontrolled hypertension. - Hyperlipidemia. - Peripheral vascular disease. Plan 1. Neuro checks q. 4 hour. 2. Aspirin 325 mg daily. The patient was on aspirin 81 mg before the stroke. 3. There is no role for permissive hypertension as symptoms began three days ago. 4. DVT prophylaxis. 5. GI prophylaxis. 6. PT and OT recommendations are appreciated 7. Patient is stable from neurology stand point, follow up with neurology outpatient 8. Please call for any questions Diagnosis/Plan: Subjective Subjective Comments No acute events reported Patient feels better with regain of strength and less speech slurring MRI brain revealed acute right basal ganglia infarction Cardiac ECHO with no source of emboli Active Medications Current Medications Medications (Trade) Dose Ordered Sig/Jose Angel Route Start Time Stop Time Status Last Admin (Coreg) 12.5 mg BID PO 12/24/16 09:00 12/25/16 08:43 (Vasotec) 10 mg DAILY PO 12/24/16 09:00 12/25/16 08:43 (Pravachol) 20 mg BID PO 12/24/16 09:00 12/25/16 08:43 (Aspirin) 325 mg DAILY PO 12/24/16 09:00 12/25/16 08:43 (NS Flush) 2 ml UNSCH PRN IV FLUSH 12/24/16 00:00 (NS Flush) 2 ml BID IV FLUSH 12/24/16 09:00 12/25/16 08:54 (Dulcolax Supp) 10 mg DAILY PRN RECTAL 12/24/16 00:00 (Narcan Inj) 0.4 mg UNSCH PRN IV 12/24/16 00:00 (Vasotec Inj) 1.25 mg Q8H PRN IV PUSH 12/24/16 00:00 (Procardia Xl) 60 mg DAILY PO 12/25/16 14:15 12/25/16 16:13 Allergies Allergies Coded Allergies Lasix (Verified Allergy, Severe, SWELLING, 12/24/16) Exam I&O / VS 12/24/16 12/24/16 12/25/16 15:00 23:00 07:00 Intake Total 600 ml 480 ml 480 ml Output Total 3 ml Balance 600 ml 477 ml 480 ml Intake Oral 600 ml 480 ml 480 ml Output Urine Total 3 ml # Voids 4 3 # Bowel Movements 1 0 0 Vital Signs Date Time Temp Pulse Resp B/P Pulse Ox O2 Delivery O2 Flow Rate FiO2 12/25/16 17:45 54 178/103 12/25/16 16:00 97.3 59 17 171/97 100 12/25/16 11:46 98.7 61 17 155/99 99 12/25/16 08:00 70 12/25/16 08:00 95.3 70 17 164/113 100 12/25/16 08:00 100 Room Air 12/25/16 04:00 97.1 60 17 177/100 100 12/25/16 00:00 97.4 71 16 169/98 100 12/24/16 20:00 62 Exam Comments GENERAL: Awake, alert, oriented, pleasant, not in acute distress. HEENT: Atraumatic, normocephalic. Intact hearing. Intact vision. RESPIRATORY: Clear to auscultation. No wheezes. CARDIOVASCULAR: Normal sinus rhythm. ABDOMEN: Soft, nontender. MUSCULOSKELETAL: No clubbing, cyanosis or edema. all extremities. NEUROLOGICAL: Awake, alert, oriented to time, person and place. Mild dysarthria. No dysphagia. Cranial nerves II-XII are intact but with subtle left facial palsy. Motor examination with left elbow extension, wrist extension , foot dorsiflexion 5-/5. The rest of the muscle examination of was 5/5. Reflexes 2+ bilateral, symmetrical. Plantars bilaterally downgoing. Sensation bilaterally intact, symmetrical. Qazvry-tz-vttz, aauv-ek-ehcl is intact. PSYCHOLOGICAL: Intact mood and behavior. No hallucinations. Objective Radiology Results Last 72 hours Impressions Neck Magnetic Resonance Angiography 12/24/16 0000 Signed Impressions: Service Date/Time: Saturday, December 24, 2016 07:33 - CONCLUSION: 1. Bilateral carotid arteries are widely patent. Khari Mcleod MD Brain MRI 12/23/16 0000 Signed Impressions: Service Date/Time: Friday, December 23, 2016 21:34 - CONCLUSION: Small focal area of acute lacunar infarction at the medial right basal ganglia/genu of the internal capsule. This is seen adjacent to an older area of infarction involving the right periventricular white matter and caudate with surrounding suspected gliosis. Eduardo Mckeon MD Micro and Labs Laboratory Tests Test 12/25/16 06:44 Sodium Level 143 Potassium Level 3.8 Chloride Level 111 Carbon Dioxide Level 24.3 Anion Gap 8 Blood Urea Nitrogen 17 Creatinine 0.95 Estimat Glomerular Filtration 99 Rate Random Glucose 82 Calcium Level 9.0 Ruben Hurtado MD December 25, 2016 19:50
[2016-12-25] MEDS ORDERED: ASPIRIN 325 MG TAB PO ONE (21:30)
[2016-12-26 00:45] VITALS: BP 154/86; PULSE 56; RESP 17; TEMP 98.2; O2SAT 98
[2016-12-26 04:45] VITALS: BP 158/93; PULSE 56; RESP 17; TEMP 97.1; O2SAT 99
[2016-12-26 08:00] VITALS: BP 150/94; PULSE 64; RESP 18; TEMP 97.1; O2SAT 99
[2016-12-26 08:23] LABS: HDL CHOLESTEROL 47.4 MG/DL (40.0-60.0)
[2016-12-26] MEDS: CARVEDILOL 12.5 MG TAB PO SCH (08:49)
[2016-12-26] MEDS: PRAVASTATIN SOD 20 MG TAB PO SCH (08:49)
[2016-12-26] MEDS: SODIUM CHLORIDE 0.9% FLUSH 10 ML FLUSH IV FLUSH SCH (08:49)
[2016-12-26] MEDS: ASPIRIN 325 MG TAB PO SCH (08:49)
[2016-12-26] MEDS: ENALAPRIL MALEATE 10 MG TAB PO SCH (08:49)
[2016-12-26] MEDS: NIFEdipine 60 MG SUSTAINED RELEASE TAB PO SCH (08:49)
[2016-12-26] MEDS ORDERED: ENAL10TA PO (10:46)
[2016-12-26] MEDS ORDERED: PLAV75TA29 PO (10:46)
[2016-12-26] MEDS ORDERED: SIMV10TA PO (10:46)
--- NOTE | 2016-12-26 11:13 | HHI.DS ---
Discharge Summary Admission Date December 23, 2016 at 23:10 Discharge Date: December 26, 2016 Admitting Diagnosis CVA (1) CVA (cerebral vascular accident) Diagnosis: Principal (2) Hypertension Diagnosis: Principal (3) Peripheral arterial disease Diagnosis: Secondary Consultants Dr. Ruben Hurtado, Neurology Brief History This is a 56-year-old male with history of hypertension, peripheral vascular disease with intermittent claudication symptoms, presents for evaluation of left arm and leg weakness and numbness. Symptom onset 1 week ago. He reports that he feels subtle weakness when for example holding drinks or lifting things with his left arm as well as when he is walking he feels like he is dragging his leg some. He says that this is different from his baseline burning pain that he has in the left leg with longer walks secondary to his peripheral vascular disease. He denies any headache, blurred vision, facial droop, dizziness, lack of coordination, nausea or vomiting, chest pain or shortness of breath, abdominal pain. No history of CVA in the past. No other complaints. Patient had MRI in er which showed acute cva lacunar infarct rt basal ganglion, case discussed with neurology increase asa to 325 and admit for further evaluation. CBC/BMP: 12/23/16 1937 12/25/16 0644 Significant Findings Laboratory Tests Test 12/23/16 12/24/16 12/25/16 19:37 04:56 06:44 Monocytes (%) (Auto) 8.2 % (0.0-8.0) Chloride Level 109 MEQ/L 112 MEQ/L 111 MEQ/L (98-107) (98-107) (98-107) Creatinine 1.32 MG/DL (0.60-1.30) Estimat Glomerular Filtration 68 ML/MIN (>89) 78 ML/MIN (>89) Rate Aspartate Amino Transf 13 U/L (15-37) (AST/SGOT) Alkaline Phosphatase 125 U/L (45-117) Troponin I LESS THAN 0.02 NG/ML (0.02-0.05) Sodium Level 146 MEQ/L (136-145) Potassium Level 3.4 MEQ/L (3.5-5.1) PE at Discharge GENERAL: This is a well-nourished, well-developed patient, in no apparent distress. CARDIOVASCULAR: Regular rate and rhythm without murmurs, gallops, or rubs. RESPIRATORY: Clear to auscultation. Breath sounds equal bilaterally. No wheezes , rales, or rhonchi. GASTROINTESTINAL: Abdomen soft, non-tender, nondistended. Normal active bowel sounds MUSCULOSKELETAL: Extremities without clubbing, cyanosis, or edema. NEURO: Alert & Oriented x4 to person, place, time, situation. Moves all ext x4 Hospital Course (1) CVA (cerebral vascular accident) Status: Acute Plan: Pt is 56 yo with htn, cva, pad presents with several days of left upper extremity weakness/clumsiness and "dragging left leg. MRI found acute right basal ganglia acute cva next to old area of cva. presumed related to local atherosclerosis/htn. no hx of afib. carotids no dz. - comgmt with Neurology - Currently his lue and lle strength have improved to baseline. Pt ambulating without difficulties. - ASA - start plavix - Tele: NSR - echocardiogram (12/24/16) EF 60-65% - holter --> pending - LDL 93 (12/26/16) - increase pravachol to 20mg qhs - review of pt's outpt BP reading shows poorly contolled BP readings for the last 2 months (prior to November 2016, no BP readings since Sep 2012 are available) - - changed norvsc to procardia xl 60mg daily - continue coreg 12.5mg BID - increase lisinopril to 20mg BID - keep home BP log - low salt diet - f/u with PCP, Dr. Perry, in 1 week - Pt may require further adjustment of his BP medications in the outpt setting. - f/u with Dr. Hurtado in 4 weeks (2) Hypertension Status: Chronic Plan: - see above (3) Peripheral arterial disease Status: Chronic Plan: hx jay iliac stenting. Pt Condition on Discharge: Stable Discharge Disposition: Discharge Home Discharge Instructions Follow up Referrals: Neurology - 4 Weeks with Ruben Hurtado MD PCP Follow-up - [address] Ambreen Perry New Medications: Clopidogrel (Plavix) 75 Mg Tab 75 MG PO DAILY Blood Clot Prevention #30 Ref 0 TAB Changed Medications: Enalapril (Enalapril) 10 Mg Tab 20 MG PO BID htn #60 Ref 0 TAB (Changed from: 10 MG; DAILY) Simvastatin (Simvastatin) 10 Mg Tab 20 MG PO HS Cholesterol Management #30 Ref 0 TAB (Changed from: 10 MG; BID) Continued Medications: Carvedilol (Carvedilol) 12.5 Mg Tab 12.5 MG PO BID Ref 0 TAB Discontinued Medications: Amlodipine (Amlodipine) 10 Mg Tab 10 MG PO BID Blood Pressure Management Ref 0 TAB Additional Information procardia xl 60mg po daily German Escalante DO December 26, 2016 11:00
[2016-12-26 12:00] VITALS: BP 155/85; PULSE 58; RESP 18; TEMP 97.5; O2SAT 99
--- NOTE | 2016-12-27 19:48 | HM ---
Date Performed: 12/25/2016 Time Performed: 18:37:00 HOOKUP DATE: 12/25/16 06:37:00 PM Mon ANALYSIS START TIME: 12/25/2016 6:42:00 PM ANALYSIS END TIME: 12/26/2016 6:30:23 PM PATIENT AGE: 56 PATIENT HEIGHT PATIENT WEIGHT DRUG LIST PATIENT DIAGNOSIS: CVA TEST NARRATIVE: The patient's average heart rate was 62 BPM. Heart rates greater than 120 B PM were noted < 1% of the time. Heart rates less than 50 BPM were noted 2% of the time. No pause s exceeding 2.0 seconds were noted. 574 ventricular ectopics, which represented 1% of the total b eat count, were noted. The highest ventricular ectopic frequency occurred from 05:00 PM to 06:00 PM Tue. During this time 55 VE(s) occurred. Ventricular ectopics were observed as 569 isolated beat(s) and as 2 couplet(s). No runs were noted. Some of the ventricular beats occurred in bigeminal cycle s. 64 supraventricular ectopics, which represented < 1% of the total beat count, were noted. The highest supraventricular ectopic frequency occurred from 09:00 AM to 10:00 AM Tue. During this time 60 SVE(s) occurred. No episodes of ST depression (defined as -1.0 mm or more) were noted in zahng bernardo 1. No episodes of ST depression (defined as -1.0 mm or more) were noted in channel 2. No episod es of ST depression (defined as -1.0 mm or more) were noted in channel 3. NO SYMPTOMS REPORTED BY THE PATIENT TEST INTERPRETATION: Sinus rhythm Frequent PVCs PACs Nonsustained AT/SVT Signed by : Patricia Adames
== END 2016-12-26 13:02 | disposition home or self-care (01) | DRG 65 ==
LOC: NEPC 19:54 → NEDA 23:10 → N06A 12-24 00:27
PROVIDERS: ADMIT Hospitalist; ATTEND Hospitalist
DX: I63.9 Cerebral infarction, unspecified (principal); G81.94 Hemiplegia, unspecified affecting left nondominant side; R47.81 Slurred speech; R29.810 Facial weakness; I73.9 Peripheral vascular disease, unspecified; I10 Essential (primary) hypertension; E78.5 Hyperlipidemia, unspecified; I25.10 Atherosclerotic heart disease of native coronary artery without angina pectoris; K21.9 Gastro-esophageal reflux disease without esophagitis; F17.210 Nicotine dependence, cigarettes, uncomplicated; Z79.82 Long term (current) use of aspirin; Z95.828 Presence of other vascular implants and grafts; Z86.73 Personal history of transient ischemic attack (TIA), and cerebral infarction without residual deficits
CPT/HCPCS: 70548; 70551; 80048; 80053; 80061; 82550; 84484; 85025; 85610; 85730; 93005; 93225; 93226; 93306; A9579

== ENCOUNTER 2017-01-10 14:14 | Emergency (ER) | payer OTHER ==
[~2017-01-10] VITALS: Ht 175.3 cm; Wt 65.0 kg
[~2017-01-10 14:14] MED LIST changes: -AMLO10TA2 PO; +PLAV75TA29 PO
[2017-01-10 14:15] VITALS: BP 201/108; PULSE 66; RESP 16; TEMP 98.9; O2SAT 99
--- NOTE | 2017-01-10 14:34 | PD ---
Physical Exam Time Seen by Provider: 14:31 Narrative 56yo M sent by Dr. Olmstead for elevated BP in his office. Took his BP medications today and says he takes them everyday. Says he is seeing stars, otherwise denies other symptoms. Denies CP, SOB, ALCANTAR, nausea, vomiting. Patient seen in triage. VS reviewed. Awaiting bed placement. Data Data Last Documented VS Vital Signs Date Time Temp Pulse Resp B/P Pulse Ox O2 Delivery O2 Flow Rate FiO2 01/10/17 14:15 98.9 66 16 201/108 99 Room Air MDM Supervised Visit with YOHANNES: Fransisca Leslie Jan 10, 2017 14:34
[2017-01-10 14:38] VITALS: BP 225/116; PULSE 68; RESP 14; TEMP 98.9; O2SAT 98
[2017-01-10] MEDS ORDERED: LORazepam 2 MG/ML VIAL IV PUSH ONE (15:00)
[2017-01-10] MEDS ORDERED: SODIUM CHLORIDE 0.9% FLUSH 10 ML FLUSH IVF PRN (15:00)
--- NOTE | 2017-01-10 15:01 | PD ---
HPI . Elevated blood pressure Chief Complaint: Cardiac Complaint Time Seen by Provider: 14:42 Travel History International Travel<30 days: No Contact w/Intl Traveler<30days: No Traveled to known affect area: No History of Present Illness HPI Patient was reportedly sent here by Dr. Hurtado for elevated blood pressure. The patient reports a history of blood pressure. He also reports a history of a recent stroke. He states that he did not start seeing stars until he got to the doctor's office today. His blood pressure was elevated at he was sent here. His only complaint is seeing stars. He denies headache blurred vision, mental status change, chest pain, shortness of breath, new onset peripheral edema. The patient reports compliance with his home medication regimen. PFSH Past Medical History Asthma: Yes Blood Disorders: No Cancer: No Cardiovascular Problems: Yes (HTN) High Cholesterol: Yes Chemotherapy: No Cerebrovascular Accident: Yes Diminished Hearing: No Deep Vein Thrombosis: Yes (pvd. S/P BLE STENTS X2 EACH) Endocrine: No Gastrointestinal Disorders: Yes GERD: Yes Genitourinary: No Hypertension: Yes Inguinal Hernia: Yes Musculoskeletal: No Neurologic: No Psychiatric: No Reproductive: No Respiratory: No Radiation Therapy: No Past Surgical History Abdominal Surgery: Yes (HERNIA INGINAL L) AICD: No Arteriovenous Shunt: No Coronary Stent: Yes (BARD LUMINEXX BILIARY STENT PLACED 07-12) Insulin Pump: No Joint Replacement: No Pacemaker: No Other Surgery: Yes (BARD LUMINEXX BILIARY STENT PLACED 07-12) Social History Alcohol Use: No Tobacco Use: No Substance Use: No Allergies-Medications (Allergen,Severity, Reaction): Coded Allergies: Lasix (Verified Allergy, Severe, SWELLING, 01/10/17) Reported Meds & Prescriptions Reported Meds & Active Scripts Active Plavix (Clopidogrel Bisulfate) 75 Mg Tab 75 Mg PO DAILY Enalapril (Enalapril Maleate) 10 Mg Tab 20 Mg PO BID Simvastatin 10 Mg Tab 20 Mg PO HS Reported Carvedilol 12.5 Mg Tab 12.5 Mg PO BID Review of Systems Except as stated in HPI: all other systems reviewed are Neg Eyes: Positive: Other (seeing stars), No: Diploplia, Blurred Vision HENT: No: Headaches Cardiovascular: No: Chest Pain or Discomfort Respiratory: No: Shortness of Breath Musculoskeletal: No: Edema Physical Exam Narrative GENERAL: Patient is awake and alert and fully oriented. SKIN: Warm and dry. HEAD: Atraumatic. Normocephalic. EYES: Pupils equal and round. Extraocular movements are intact. ENT: No nasal bleeding or discharge. Mucous membranes pink and moist. NECK: Trachea midline. CARDIOVASCULAR: Regular rate and rhythm. Heart sounds are normal. RESPIRATORY: No accessory muscle use. Lungs are clear with full air movement throughout. GASTROINTESTINAL: Abdomen soft, non-tender, nondistended. MUSCULOSKELETAL: No obvious deformities. No edema. NEUROLOGICAL: Awake and alert. No obvious cranial nerve deficits. Motor grossly within normal limits. Normal speech. PSYCHIATRIC: Appropriate mood and affect; insight and judgment normal. Data Data Last Documented VS Vital Signs Date Time Temp Pulse Resp B/P Pulse Ox O2 Delivery O2 Flow Rate FiO2 01/10/17 15:41 97.7 69 17 184/95 98 Room Air Orders Electrocardiogram (01/10/17 ) Electrocardiogram (01/10/17 14:49) Basic Metabolic Panel (Bmp) (01/10/17 14:49) Ckmb (Isoenzyme) Profile (01/10/17 14:49) Complete Blood Count With Diff (01/10/17 14:49) Magnesium (Mg) (01/10/17 14:49) Troponin I (01/10/17 14:49) Chest, Single Ap (01/10/17 14:49) Ecg Monitoring (01/10/17 14:49) Iv Access Insert/Monitor (01/10/17 14:49) Sodium Chloride 0.9% Flush (Ns Flush) (01/10/17 15:00) Lorazepam Inj (Ativan Inj) (01/10/17 15:00) CKMB (01/10/17 15:00) CKMB% (01/10/17 15:00) Labs Laboratory Tests Test 01/10/17 15:00 White Blood Count 5.8 TH/MM3 Red Blood Count 4.53 MIL/MM3 Hemoglobin 14.5 GM/DL Hematocrit 42.0 % Mean Corpuscular Volume 92.6 FL Mean Corpuscular Hemoglobin 31.9 PG Mean Corpuscular Hemoglobin 34.5 % Concent Red Cell Distribution Width 14.6 % Platelet Count 158 TH/MM3 Mean Platelet Volume 10.0 FL Neutrophils (%) (Auto) 66.4 % Lymphocytes (%) (Auto) 22.0 % Monocytes (%) (Auto) 8.7 % Eosinophils (%) (Auto) 1.6 % Basophils (%) (Auto) 1.3 % Neutrophils # (Auto) 3.9 TH/MM3 Lymphocytes # (Auto) 1.3 TH/MM3 Monocytes # (Auto) 0.5 TH/MM3 Eosinophils # (Auto) 0.1 TH/MM3 Basophils # (Auto) 0.1 TH/MM3 CBC Comment DIFF FINAL Differential Comment Sodium Level 143 MEQ/L Potassium Level 4.3 MEQ/L Chloride Level 109 MEQ/L Carbon Dioxide Level 25.7 MEQ/L Anion Gap 8 MEQ/L Blood Urea Nitrogen 13 MG/DL Creatinine 1.22 MG/DL Estimat Glomerular Filtration 74 ML/MIN Rate Random Glucose 87 MG/DL Calcium Level 8.9 MG/DL Magnesium Level 2.1 MG/DL Total Creatine Kinase 127 U/L Troponin I LESS THAN 0.02 NG/ML MDM Medical Decision Making Medical Screen Exam Complete: Yes Emergency Medical Condition: Yes Medical Record Reviewed: Yes (patient was admitted here 12/23-12/26 for an acute right lacunar infarct. He did not have any evidence of disease in his carotids. He was treated with aspirin, Plavix and a statin. Plans were made for him to be closely followed as an outpatient to optimize his blood pressure. He had been poorly controlled in the past with his blood pressure.) Interpretation(s) EKG shows a normal sinus rhythm with no acute changes. Unchanged compared to previous. Differential Diagnosis Differential diagnosis includes essential hypertension, hypertensive emergency Narrative Course Patient presents for hypertension. He is not having any symptoms compatible with hypertensive emergency such as chest pain, shortness of breath, encephalopathy. This patient's blood pressure has reportedly been very poorly controlled in the outpatient setting. Control of his blood pressure would be more appropriately achieved in the outpatient setting. CBC & BMP Diagram 01/10/17 15:00 Total CK is 127. Troponin is less than 0.02. Chest x-ray shows no acute finding. The chest x-ray was independently viewed by me. Diagnosis Primary Impression: Hypertension Qualified Code: I10 - Essential hypertension Patient Instructions: Chronic Hypertension (DC), General Instructions Additional Instructions: I have advised the patient and his family to check his blood pressure once daily , first thing in the morning and write it down. They should take the log with them when they go to follow-up with his primary care provider. Disposition: 01 DISCHARGE HOME Condition: Stable Oeters,Tamiko Jose MD Jan 10, 2017 15:01
[2017-01-10 15:20] LABS: AUTOMATED NEUTROPHIL # 3.9 TH/MM3 (1.8-7.7); BASOPHIL # 0.1 TH/MM3 (0-0.2); BASOPHIL % 1.3 % (0.0-2.0); EOSINOPHIL # 0.1 TH/MM3 (0-0.4); EOSINOPHIL % 1.6 % (0.0-4.0); HEMO FLAGS DIFF FINAL; LYMPHOCYTE # 1.3 TH/MM3 (1.0-4.8); MEAN CELL VOLUME 92.6 FL (80.0-100.0); MEAN CORPUSCULAR HEMOGLOBIN 31.9 PG (27.0-34.0); MEAN CORPUSCULAR HGB CONC 34.5 % (32.0-36.0); MONO % 8.7 % (0.0-8.0); NEUT % 66.4 % (16.0-70.0); PLATELET COUNT 158 TH/MM3 (150-450); RED BLOOD COUNT 4.53 MIL/MM3 (4.50-5.90); RED CELL DISTRIBUTION WIDTH 14.6 % (11.6-17.2); WHITE BLOOD COUNT 5.8 TH/MM3 (4.0-11.0)
[2017-01-10 15:41] VITALS: BP 184/95; PULSE 69; RESP 17; TEMP 97.7; O2SAT 98
[2017-01-10 15:45] LABS: ANION GAP 8 MEQ/L (5-15); BICARBONATE 25.7 MEQ/L (21.0-32.0); BLOOD UREA NITROGEN 13 MG/DL (7-18); CHLORIDE 109 MEQ/L (98-107); GLOMERULAR FILTRATION RATE 74 ML/MIN (>89); MAGNESIUM 2.1 MG/DL (1.5-2.5); SODIUM (NA) 143 MEQ/L (136-145)
[2017-01-10 15:46] LABS: POTASSIUM 4.3 MEQ/L (3.5-5.1)
[2017-01-10 16:07] LABS: CREATINE KINASE 127 U/L (39-308)
--- NOTE | 2017-01-10 16:07 | RADRPT ---
EXAM DATE/TIME: 01/10/2017 15:54 [facility] COMPARISON: No previous studies available for comparison. INDICATIONS : Chest pain and palpitations. MEDICAL HISTORY : Hypertension. Stroke. SURGICAL HISTORY : None. ENCOUNTER: Initial ACUITY: 1 day PAIN SCORE: 2/10 LOCATION: Bilateral chest FINDINGS: A single view of the chest demonstrates the lungs to be symmetrically aerated without evidence of mas s, infiltrate or effusion. The cardiomediastinal contours are unremarkable. Osseous structures are intact. CONCLUSION: No acute disease. Mathew Lovell MD FACR on January 10, 2017 at 16:04 Board Certified Radiologist. This report was verified electronically.
[2017-01-10 16:19] LABS: CKMB 0.9 NG/ML (0.5-3.6)
[2017-01-10 16:45] VITALS: BP 158/86; TEMP 97.8
--- NOTE | 2017-01-11 14:48 | EKG ---
Date Performed: 01/10/2017 Time Performed: 14:49:27 PTAGE: 56 years EKG: Sinus rhythm WITH SINUS ARRHYTHMIA POSSIBLE LEFT ATRIAL ENLARGEMENT NONSPECIFIC ST & T-WAVE ABNORMALITY BORDERLIN E ECG PREVIOUS TRACING : 12/23/2016 20.55 Compared to previous tracing, sinus rate has increased. Ant erolateral ST elevation and T-wave abnormalities, though slightly present on the last EKG are more pr ominent, consider ischemia or acute injury in the appropriate setting. DOCTOR: Lui Hoyt Interpretating Date/Time 01/11/2017 14:47:51
== END 2017-01-10 16:45 | disposition home or self-care (01) ==
LOC: NEPD 14:14
DX: I10 Essential (primary) hypertension (principal); R94.31 Abnormal electrocardiogram [ECG] [EKG]
CPT/HCPCS: 71010; 80048; 82550; 82552; 83735; 84484; 85025; 93005; 96374; 99285; J2060

== ENCOUNTER 2017-01-18 15:46 | Observation (INO) | payer OTHER ==
[~2017-01-18] VITALS: Ht 172.7 cm; Wt 61.7 kg
[2017-01-18] VITALS (22 sets, daily range): BP systolic 126–256; BP diastolic 72–127; PULSE 53–75; RESP 16–20; TEMP 98.5; O2SAT 98–100
--- NOTE | 2017-01-18 16:09 | PD ---
Physical Exam Time Seen by Provider: 16:06 Narrative 56yo M c/o Skinner x 1hour. Denies hx of SKINNER. Throbbing SKINNER. Had stroke in the last few weeks and was seen here. Has HTN and takes BP meds daily; says he took them today. BP elevated in ER. Patient seen in triage. VS reviewed. Awaiting bed placement. Data Data Last Documented VS Vital Signs Date Time Temp Pulse Resp B/P Pulse Ox O2 Delivery O2 Flow Rate FiO2 01/18/17 15:49 98.5 55 16 208/107 99 Room Air MDM Supervised Visit with YOHANNES: Fransisca Leslie Jan 18, 2017 16:09
--- NOTE | 2017-01-18 18:02 | PD ---
HPI Chief Complaint: Hypertension Time Seen by Provider: 17:37 Travel History International Travel<30 days: No Contact w/Intl Traveler<30days: No Traveled to known affect area: No History of Present Illness HPI 56-year-old male came to the emergency room with history of hypertension. Patient says that he has been checking his blood pressure and that's running more than 200 for past couple days. He has some headache but no chest pain or blurred vision. Patient was diagnosed with hypertension is 3-4 weeks ago and it was done in this hospital. He says he was discharged home on medications and he has been taking them but his blood pressure is still running high. In the emergency room his blood pressure was 235 systolic. Is not complaining of any chest pain. His is here with him. Patient is awake and answering all the questions appropriately. PFSH Past Medical History Narrative Medical List of her past medical, surgical, social and family history was reviewed from the nursing note. Asthma: Yes Blood Disorders: No Cancer: No Cardiac Catheterization: Yes Cardiovascular Problems: Yes (HTN) High Cholesterol: Yes Chemotherapy: No Cerebrovascular Accident: Yes (L SIDED WEAKNESS ) Diminished Hearing: No Deep Vein Thrombosis: Yes (pvd. S/P BLE STENTS X2 EACH) Endocrine: No Gastrointestinal Disorders: Yes GERD: Yes Genitourinary: No Hypertension: Yes Inguinal Hernia: Yes Musculoskeletal: No Neurologic: No Psychiatric: No Reproductive: No Respiratory: No Immunizations Current: No Radiation Therapy: No Tetanus Vaccination: < 5 Years Influenza Vaccination: No Past Surgical History Abdominal Surgery: Yes (HERNIA INGINAL L) AICD: No Arteriovenous Shunt: No Coronary Stent: Yes (BARD LUMINEXX BILIARY STENT PLACED 07-12) Insulin Pump: No Joint Replacement: No Pacemaker: No Other Surgery: Yes (BARD LUMINEXX BILIARY STENT PLACED 07-12) Social History Alcohol Use: No Tobacco Use: No (quit 3 weeks ) Substance Use: No Allergies-Medications (Allergen,Severity, Reaction): Coded Allergies: Lasix (Verified Allergy, Severe, SWELLING, 01/18/17) Comments List of his allergies reviewed from the nursing note. Reported Meds & Prescriptions Reported Meds & Active Scripts Active Plavix (Clopidogrel Bisulfate) 75 Mg Tab 75 Mg PO DAILY Enalapril (Enalapril Maleate) 10 Mg Tab 20 Mg PO BID Simvastatin 10 Mg Tab 20 Mg PO HS Reported Carvedilol 12.5 Mg Tab 12.5 Mg PO BID Narrative Medication List of his home medications reviewed from the nursing note. Review of Systems Except as stated in HPI: all other systems reviewed are Neg Physical Exam Narrative GENERAL: Awake, alert, no obvious distress SKIN: Focused skin assessment warm/dry. HEAD: Atraumatic. Normocephalic. EYES: Pupils equal and round. No scleral icterus. No injection or drainage. ENT: No nasal bleeding or discharge. Mucous membranes pink and moist. NECK: Trachea midline. No JVD. CARDIOVASCULAR: Regular rate and rhythm. No murmur appreciated. RESPIRATORY: No accessory muscle use. Clear to auscultation. Breath sounds equal bilaterally. GASTROINTESTINAL: Abdomen soft, non-tender, nondistended. Hepatic and splenic margins not palpable. MUSCULOSKELETAL: No obvious deformities. No clubbing. No cyanosis. No edema. NEUROLOGICAL: Awake and alert. No obvious cranial nerve deficits. Motor grossly within normal limits. Normal speech. PSYCHIATRIC: Appropriate mood and affect; insight and judgment normal. Data Data Last Documented VS Vital Signs Date Time Temp Pulse Resp B/P Pulse Ox O2 Delivery O2 Flow Rate FiO2 01/18/17 20:24 59 20 182/101 100 Room Air 01/18/17 15:49 98.5 Orders Clonidine (Catapres) (01/18/17 18:15) Hydralazine Inj (Apresoline Inj) (01/18/17 18:15) Ct Brain W/O Iv Contrast(Rout) (01/18/17 ) Complete Blood Count With Diff (01/18/17 18:10) Basic Metabolic Panel (Bmp) (01/18/17 18:10) Unit Manager / Telemetry ROBERT.[email or web address] (01/18/17 18:12) Drug Screen, Random Urine (01/18/17 18:12) Nicardipine Inj (Cardene Inj) (01/18/17 20:15) Admit Order (Ed Use Only) (01/18/17 20:27) Labs Laboratory Tests Test 01/18/17 01/18/17 17:10 19:10 White Blood Count 5.6 TH/MM3 Red Blood Count 4.72 MIL/MM3 Hemoglobin 14.6 GM/DL Hematocrit 45.0 % Mean Corpuscular Volume 95.2 FL Mean Corpuscular Hemoglobin 30.9 PG Mean Corpuscular Hemoglobin 32.5 % Concent Red Cell Distribution Width 14.8 % Platelet Count 165 TH/MM3 Mean Platelet Volume 10.7 FL Neutrophils (%) (Auto) 56.1 % Lymphocytes (%) (Auto) 28.8 % Monocytes (%) (Auto) 10.1 % Eosinophils (%) (Auto) 2.9 % Basophils (%) (Auto) 2.1 % Neutrophils # (Auto) 3.1 TH/MM3 Lymphocytes # (Auto) 1.6 TH/MM3 Monocytes # (Auto) 0.6 TH/MM3 Eosinophils # (Auto) 0.2 TH/MM3 Basophils # (Auto) 0.1 TH/MM3 CBC Comment DIFF FINAL Differential Comment Sodium Level 140 MEQ/L Potassium Level 3.7 MEQ/L Chloride Level 106 MEQ/L Carbon Dioxide Level 24.7 MEQ/L Anion Gap 9 MEQ/L Blood Urea Nitrogen 12 MG/DL Creatinine 1.35 MG/DL Estimat Glomerular Filtration 66 ML/MIN Rate Random Glucose 75 MG/DL Calcium Level 8.8 MG/DL Urine Opiates Screen NEG Urine Barbiturates Screen NEG Urine Amphetamines Screen NEG Urine Benzodiazepines Screen NEG Urine Cocaine Screen NEG Urine Cannabinoids Screen POS MDM Medical Decision Making Medical Screen Exam Complete: Yes Emergency Medical Condition: Yes Medical Record Reviewed: Yes Differential Diagnosis Essential hypertension, hypertensive emergency, hypertensive urgency Narrative Course 6:55 PM patient was given medication to lower his blood pressure. Awaiting for the blood test result of the CAT scan to be done and resulted. Case has been signed over to the oncoming ER physician. Procedures EKG Prior to Arrival: No Scripts Nifedipine ER 24 HR 30 Mg Tab30 Mg PO BID #60 TAB Ref 3 Prov:Erick Dillard MD 01/20/17 Brice Mariscal MD Jan 18, 2017 18:02
[2017-01-18] MEDS ORDERED: hydrALAZINE HCL 20 MG/ML VIAL IV PUSH ONE (18:15)
[2017-01-18] MEDS ORDERED: cloNIDine HCL 0.2 MG TAB PO ONE (18:15)
[2017-01-18 18:34] LABS: AUTOMATED NEUTROPHIL # 3.1 TH/MM3 (1.8-7.7); BASOPHIL # 0.1 TH/MM3 (0-0.2); BASOPHIL % 2.1 % (0.0-2.0); EOSINOPHIL # 0.2 TH/MM3 (0-0.4); EOSINOPHIL % 2.9 % (0.0-4.0); HEMO FLAGS DIFF FINAL; LYMPH % 28.8 % (9.0-44.0); LYMPHOCYTE # 1.6 TH/MM3 (1.0-4.8); MEAN CELL VOLUME 95.2 FL (80.0-100.0); MEAN CORPUSCULAR HEMOGLOBIN 30.9 PG (27.0-34.0); MEAN CORPUSCULAR HGB CONC 32.5 % (32.0-36.0); MONO % 10.1 % (0.0-8.0); NEUT % 56.1 % (16.0-70.0); PLATELET COUNT 165 TH/MM3 (150-450); RED BLOOD COUNT 4.72 MIL/MM3 (4.50-5.90); RED CELL DISTRIBUTION WIDTH 14.8 % (11.6-17.2); WHITE BLOOD COUNT 5.6 TH/MM3 (4.0-11.0)
[2017-01-18 19:03] LABS: BICARBONATE 24.7 MEQ/L (21.0-32.0); POTASSIUM 3.7 MEQ/L (3.5-5.1)
--- NOTE | 2017-01-18 19:26 | RADRPT ---
EXAM DATE/TIME: 01/18/2017 19:14 [facility] COMPARISON: MRI BRAIN W/O CONTRAST, December 23, 2016, 21:34. INDICATIONS : Cephalgia with hypertension. RADIATION DOSE: 56.35 CTDIvol (mGy) MEDICAL HISTORY : Hypertension. Cerebrovascular disease. SURGICAL HISTORY : None. ENCOUNTER: Initial ACUITY: 1 day PAIN SCALE: 8/10 LOCATION: cranial TECHNIQUE: Multiple contiguous axial images were obtained of the head. Using automated exposure control and adj ustment of the mA and/or kV according to patient size, radiation dose was kept as low as reasonably a chievable to obtain optimal diagnostic quality images. FINDINGS: CEREBRUM: The ventricles are normal for age. No evidence of midline shift, mass lesion, hemorrhage or acute in farction. No extra-axial fluid collections are seen. Old right basal ganglia lacunar infarct again n oted. POSTERIOR FOSSA: The cerebellum and brainstem are intact. The 4th ventricle is midline. The cerebellopontine angle i s unremarkable. EXTRACRANIAL: The visualized portion of the orbits is intact. The 11 mm mucous retention cyst right maxillary air c ell. SKULL: The calvaria is intact. No evidence of skull fracture. CONCLUSION: No acute intracranial abnormality. Old right basal ganglia infarct. Small mucous retention cyst of th e right maxillary sinus. Eduardo Nathan MD on January 18, 2017 at 19:22 Board Certified Radiologist. This report was verified electronically.
[2017-01-18 20:08] LABS: AMPHETAMINE, URINE NEG (NEG); BARBITURATES, URINE NEG (NEG); COCAINE, URINE NEG (NEG)
[2017-01-18] MEDS ORDERED: niCARdipine INJ 25 MG in SODIUM CHLOR 0.9% 250 ML INJ 250 ML IV ONE (20:15)
[2017-01-18] MEDS: SODIUM CHLORIDE 0.9% FLUSH 10 ML FLUSH IV FLUSH SCH (20:56)
[2017-01-18] MEDS: ONDANSETRON HCL 4 MG/2 ML VIAL IV PUSH PRN (20:59)
[2017-01-18] MEDS: MORPHINE SULFATE 4 MG/ML INJ IV PUSH PRN (21:00)
[2017-01-18] MEDS ORDERED: SODIUM CHLORIDE 0.9% FLUSH 10 ML FLUSH IV FLUSH PRN (21:00)
[2017-01-18] MEDS ORDERED: ENALAPRILAT 1.25 MG/ML VIAL IV PRN (21:00)
[2017-01-18] MEDS: hydrALAZINE HCL 10 MG TAB PO SCH (21:00)
--- NOTE | 2017-01-18 21:04 | HHI.HP ---
HPI Service [facility] Hospitalists Primary Care Physician Ambreen Perry MD Admission Diagnosis hypertensive urgency Chief Complaint: cephalgia, elevated BP, hx stroke Travel History International Travel<30 Days: No Contact w/Intl Traveler <30 Da: No Traveled to Known Affected Are: No History of Present Illness 56-year-old male with history of poorly controlled hypertension and recent right basal ganglia CVA in December of this year presents for headache and significantly elevated blood pressures. He noted the headache about one half hours prior to arrival and reports that it is located in the right posterior parietal area. He denies any vision changes or trauma. No loss of consciousness no chest pain or palpitations. On arrival is noted that his blood pressure systolically in the 200s with diastolics in the low 110s. His pressures have remained significantly elevated despite several interventions. The posterior headache. CT brain done today shows no acute findings. He denies any fevers or chills. Denies any sinus congestion or discharge. Overall states he feels fine with the exception of the right posterior headache. Review of Systems Constitutional: DENIES: Diaphoretic episodes, Fatigue, Fever, Weight gain, Weight loss, Chills, Dizziness, Change in appetite, Night Sweats Endocrine: DENIES: Heat/cold intolerance, Polydipsia, Polyuria, Polyphagia Eyes: DENIES: Blurred vision, Diplopia, Eye inflammation, Eye pain, Vision loss , Photosensitivity, Double Vision Ears, nose, mouth, throat: DENIES: Tinnitus, Hearing loss, Vertigo, Nasal discharge, Oral lesions, Throat pain, Hoarseness, Ear Pain, Running Nose, Epistaxis, Sinus Pain, Toothache, Odynophagia Respiratory: DENIES: Apneas, Cough, Snoring, Wheezing, Hemoptysis, Sputum production, Shortness of breath Cardiovascular: DENIES: Chest pain, Palpitations, Syncope, Dyspnea on Exertion , PND, Lower Extremity Edema, Orthopnea, Claudication Gastrointestinal: DENIES: Abdominal pain, Black stools, Bloody stools, BRB per rectum, Constipation, Diarrhea, GERD, Nausea, Reflux, Vomiting, Difficulty Swallowing, Anorexia, See HPI Musculoskeletal: COMPLAINS OF: Joint pain Hematologic/lymphatic: DENIES: Bruising, Lymphadenopathy Immunologic/allergic: DENIES: Eczema, Urticaria Neurologic: COMPLAINS OF: Headache, DENIES: Abnormal gait, Localized weakness , Paresthesias, Seizures, Speech Problems, Tremor, Poor Balance Psychiatric: DENIES: Anxiety, Confusion, Mood changes, Depression, Hallucinations, Agitation, Suicidal Ideation, Homicidal Ideation, Delusions, History of Bipolar, History of Schizophrenia Past Family Social History Past Medical History Right basal ganglia CVA in December of this year Atherosclerosis of the aorta GERD Hypertension Hyperlipidemia History of hypertensive urgency History of tobacco abuse which he stopped in December of this year Peripheral vascular disease Past Surgical History STAINED GLASS ARTIST with iliac stent placement Inguinal hernia repair Reported Medications Plavix (Clopidogrel Bisulfate) 75 Mg Tab 75 Mg PO DAILY Enalapril (Enalapril Maleate) 10 Mg Tab 20 Mg PO BID Simvastatin 10 Mg Tab 20 Mg PO HS Carvedilol 12.5 Mg Tab 12.5 Mg PO BID Allergies: Coded Allergies: Lasix (Verified Allergy, Severe, SWELLING, 01/18/17) Family History Father had several strokes and also had [place] as well as colon cancer and hypertension Social History He lives apparently with his mother He has been a for several years 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 Physical Exam Vital Signs Vital Signs Date Time Temp Pulse Resp B/P Pulse Ox O2 Delivery O2 Flow Rate FiO2 01/18/17 20:39 58 211/119 100 Room Air 01/18/17 20:24 59 20 182/101 100 Room Air 01/18/17 20:09 58 20 190/110 100 Room Air 01/18/17 19:54 57 20 203/114 100 Room Air 01/18/17 19:51 208/110 01/18/17 19:30 199/100 01/18/17 19:14 194/103 01/18/17 18:56 61 199/109 100 Room Air 01/18/17 18:40 63 215/108 100 01/18/17 18:40 59 16 215/108 100 01/18/17 18:00 57 20 236/116 100 Room Air 01/18/17 17:11 Room Air 01/18/17 17:10 53 18 256/127 99 Room Air 01/18/17 15:49 98.5 55 16 208/107 99 Room Air Physical Exam GENERAL: This is a well-nourished, well-developed patient, in no apparent distress. Alert and oriented. Pleasant. SKIN: Small area of folliculitis right lower neck. Cool and dry. HEAD: Atraumatic. Normocephalic. No temporal or scalp tenderness. EYES: Pupils equal round and reactive. Extraocular motions intact. No scleral icterus. No injection or drainage. ENT: Nose without bleeding, purulent drainage or septal hematoma. Airway patent. Cerumen impaction bilaterally. NECK: Trachea midline. No JVD or lymphadenopathy. Supple, nontender, no meningeal signs. CARDIOVASCULAR: Regular rate and rhythm without murmurs, gallops, or rubs. RESPIRATORY: Clear to auscultation. Breath sounds equal bilaterally. No wheezes , rales, or rhonchi. GASTROINTESTINAL: Abdomen soft, non-tender, nondistended. No hepato-splenomegaly , or palpable masses. No guarding. MUSCULOSKELETAL: Extremities without clubbing, cyanosis, or edema. No joint tenderness, effusion, or edema noted. No calf tenderness. NEUROLOGICAL: Awake and alert. Cranial nerves II through XII intact. Motor and sensory grossly within normal limits. Five out of 5 muscle strength in all muscle groups. Normal speech. Laboratory Laboratory Tests Test 01/18/17 01/18/17 17:10 19:10 White Blood Count 5.6 Red Blood Count 4.72 Hemoglobin 14.6 Hematocrit 45.0 Mean Corpuscular Volume 95.2 Mean Corpuscular Hemoglobin 30.9 Mean Corpuscular Hemoglobin 32.5 Concent Red Cell Distribution Width 14.8 Platelet Count 165 Mean Platelet Volume 10.7 Neutrophils (%) (Auto) 56.1 Lymphocytes (%) (Auto) 28.8 Monocytes (%) (Auto) 10.1 Eosinophils (%) (Auto) 2.9 Basophils (%) (Auto) 2.1 Neutrophils # (Auto) 3.1 Lymphocytes # (Auto) 1.6 Monocytes # (Auto) 0.6 Eosinophils # (Auto) 0.2 Basophils # (Auto) 0.1 CBC Comment DIFF FINAL Differential Comment Sodium Level 140 Potassium Level 3.7 Chloride Level 106 Carbon Dioxide Level 24.7 Anion Gap 9 Blood Urea Nitrogen 12 Creatinine 1.35 Estimat Glomerular Filtration 66 Rate Random Glucose 75 Calcium Level 8.8 Urine Opiates Screen NEG Urine Barbiturates Screen NEG Urine Amphetamines Screen NEG Urine Benzodiazepines Screen NEG Urine Cocaine Screen NEG Urine Cannabinoids Screen POS Result Diagram: 01/18/17 1710 01/18/17 1710 Imaging Last [address] 01/18/17 0000 Signed Impressions: Service Date/Time: January 19:14 - CONCLUSION: No acute intracranial abnormality. Old right basal ganglia infarct. Small mucous retention cyst of the right maxillary sinus. Eduardo Nathan MD Assessment and Plan Problem List: (1) Hypertensive urgency Status: Acute Plan: Patient has failed oral medication. Cardene drip has been initiated and most recent systolic blood pressure is down to 160s. Attending Cardene drip for now. Monitor overnight and CRC or ICU as appropriate. (2) Cephalgia Status: Acute Plan: Possibly associated with significantly elevated blood pressure and likely contributing to the blood pressure as well. Pain medication. Follow closely. (3) History of stroke Status: Chronic Plan: Focal deficits. Continue medication and secondary prevention. (4) Hyperlipidemia Status: Chronic Plan: Continue medication. (5) Peripheral arterial disease Status: Chronic Plan: Continue secondary prevention. Code Status Full Discussed Condition With Patient, his mother and ER physician James Car MD PhD Jan 18, 2017 21:04
--- NOTE | 2017-01-18 21:13 | PD ---
Data Data Last Documented VS Vital Signs Date Time Temp Pulse Resp B/P Pulse Ox O2 Delivery O2 Flow Rate FiO2 01/18/17 20:24 59 20 182/101 100 Room Air 01/18/17 15:49 98.5 Orders Clonidine (Catapres) (01/18/17 18:15) Hydralazine Inj (Apresoline Inj) (01/18/17 18:15) Ct Brain W/O Iv Contrast(Rout) (01/18/17 ) Complete Blood Count With Diff (01/18/17 18:10) Basic Metabolic Panel (Bmp) (01/18/17 18:10) Tire Service Technician / Telemetry ROBERT.Q8H (01/18/17 18:12) Drug Screen, Random Urine (01/18/17 18:12) Nicardipine Inj (Cardene Inj) (01/18/17 20:15) Admit Order (Ed Use Only) (01/18/17 20:27) Labs Laboratory Tests Test 01/18/17 01/18/17 17:10 19:10 White Blood Count 5.6 TH/MM3 Red Blood Count 4.72 MIL/MM3 Hemoglobin 14.6 GM/DL Hematocrit 45.0 % Mean Corpuscular Volume 95.2 FL Mean Corpuscular Hemoglobin 30.9 PG Mean Corpuscular Hemoglobin 32.5 % Concent Red Cell Distribution Width 14.8 % Platelet Count 165 TH/MM3 Mean Platelet Volume 10.7 FL Neutrophils (%) (Auto) 56.1 % Lymphocytes (%) (Auto) 28.8 % Monocytes (%) (Auto) 10.1 % Eosinophils (%) (Auto) 2.9 % Basophils (%) (Auto) 2.1 % Neutrophils # (Auto) 3.1 TH/MM3 Lymphocytes # (Auto) 1.6 TH/MM3 Monocytes # (Auto) 0.6 TH/MM3 Eosinophils # (Auto) 0.2 TH/MM3 Basophils # (Auto) 0.1 TH/MM3 CBC Comment DIFF FINAL Differential Comment Sodium Level 140 MEQ/L Potassium Level 3.7 MEQ/L Chloride Level 106 MEQ/L Carbon Dioxide Level 24.7 MEQ/L Anion Gap 9 MEQ/L Blood Urea Nitrogen 12 MG/DL Creatinine 1.35 MG/DL Estimat Glomerular Filtration 66 ML/MIN Rate Random Glucose 75 MG/DL Calcium Level 8.8 MG/DL Urine Opiates Screen NEG Urine Barbiturates Screen NEG Urine Amphetamines Screen NEG Urine Benzodiazepines Screen NEG Urine Cocaine Screen NEG Urine Cannabinoids Screen POS MDM Supervised Visit with YOHANNES: Yes Narrative Course he history, exam, and medical decision-making in the associated midlevel provider note were completed with my assistance. I reviewed and agree with the findings presented. I attest that I had a [id number] encounter with the patient on the same day, and personally performed and documented my assessment and findings in the medical record. *My assessment and Findings: This is a 63-year-old male who presents to the emergency department with headache and high blood pressure. He has a normal neurologic exam. Blood pressure was quite high on arrival. He was given hydralazine and clonidine by Dr. Mariscal. CT of the head was reassuring. Patient's blood pressure continues to be high. He'll be placed on a Cardene drip and admitted to the CICU. I discussed the patient with Dr. Car. Critical Care Narrative Aggregate critical care time was 35 minutes. Time to perform other separately billable procedures was not included in the critical care time. My time did not include minutes spent treating any other patients simultaneously or on activities that did not directly contribute to the patient's treatment. The services I provided to this patient were to treat and/or prevent clinically significant deterioration that could result in: disability, I provided critical care services requiring my management, as noted below: Chart data review, documentation time, medication orders and management, vital sign assessments/reviewing monitor data, ordering and reviewing lab tests, ordering and interpreting/reviewing x-rays and diagnostic studies, care of the patient and discussion of the patient with the admitting physicians. Lor Mckee MD Jan 18, 2017 21:13
[2017-01-19] VITALS (19 sets, daily range): BP systolic 113–179; BP diastolic 58–105; PULSE 55–67; RESP 11–20; TEMP 97.9–98.5; O2SAT 98–100
[2017-01-19] MEDS: niCARdipine 25 MG/NS 250 ML Vial2Bag or IV room IV SCH ×4 (01:19→06:38)
[2017-01-19] MEDS: MORPHINE SULFATE 4 MG/ML INJ IV PUSH PRN (04:02)
[2017-01-19] MEDS: ONDANSETRON HCL 4 MG/2 ML VIAL IV PUSH PRN (04:03)
[2017-01-19] MEDS: ENALAPRIL MALEATE 10 MG TAB PO SCH ×2 (08:28→22:21)
[2017-01-19] MEDS: CARVEDILOL 12.5 MG TAB PO SCH ×2 (08:28→21:00)
[2017-01-19] MEDS: CLOPIDOGREL 75 MG TAB PO SCH (08:28)
[2017-01-19] MEDS: hydrALAZINE HCL 10 MG TAB PO SCH (08:28)
--- NOTE | 2017-01-19 08:51 | HHI.PR ---
Subjective Remarks headache better. Objective Vitals heart reg lung cta abd s/nt ext no edema Vital Signs Date Time Temp Pulse Resp B/P Pulse Ox O2 Delivery O2 Flow Rate FiO2 01/19/17 06:00 60 01/19/17 05:00 63 14 133/75 99 01/19/17 04:07 12 01/19/17 04:00 98.2 63 12 128/74 100 01/19/17 04:00 63 01/19/17 03:00 56 14 113/58 100 01/19/17 02:00 56 01/19/17 01:00 98.5 62 16 143/80 100 01/19/17 01:00 64 01/19/17 00:39 55 122/69 99 Room Air 01/19/17 00:24 118/70 01/19/17 00:01 127/85 01/18/17 23:25 60 126/74 99 01/18/17 22:52 129/72 01/18/17 22:39 61 126/72 98 01/18/17 22:24 67 142/81 98 01/18/17 22:09 70 147/83 01/18/17 21:54 68 150/86 100 Room Air 01/18/17 21:49 99 Room Air 01/18/17 21:39 72 154/90 100 01/18/17 21:24 75 160/95 100 01/18/17 21:01 100 01/18/17 20:55 66 169/94 100 Room Air 01/18/17 20:39 58 211/119 100 Room Air 01/18/17 20:24 59 20 182/101 100 Room Air 01/18/17 20:09 58 20 190/110 100 Room Air 01/18/17 19:54 57 20 203/114 100 Room Air 01/18/17 19:51 208/110 01/18/17 19:30 199/100 01/18/17 19:14 194/103 01/18/17 18:56 61 199/109 100 Room Air 01/18/17 18:40 63 215/108 100 01/18/17 18:40 59 16 215/108 100 01/18/17 18:00 57 20 236/116 100 Room Air 01/18/17 17:11 Room Air 01/18/17 17:10 53 18 256/127 99 Room Air 01/18/17 15:49 98.5 55 16 208/107 99 Room Air 01/18/17 01/18/17 01/19/17 15:00 23:00 07:00 Output Total 1100 ml 850 ml Balance -1100 ml -850 ml Output Urine Total 1100 ml 850 ml # Voids 5 Result Diagram: 01/18/17 1710 01/18/17 1710 Imaging Last [address] 01/18/17 0000 Signed Impressions: Service Date/Time: January 19:14 - CONCLUSION: No acute intracranial abnormality. Old right basal ganglia infarct. Small mucous retention cyst of the right maxillary sinus. Eduardo Nathan MD A/P Problem List: (1) Hypertensive urgency Status: Acute Plan: pt was on coreg and enalapril. clonidine added per pcp presented with htn urgency and h/a recent BG cva and left side weakness. no acute cva on this admission wean off cardene gtt resume his enalapril/coreg.. add procardia transfer to [facility] if off cardene. (2) CVA (cerebral vascular accident) Status: Chronic Plan: see above (3) History of stroke Status: Chronic Plan: Focal deficits. Continue medication and secondary prevention. (4) Hyperlipidemia Status: Chronic Plan: Continue medication. (5) Peripheral arterial disease Status: Chronic Plan: Continue secondary prevention. Erick Dillard MD Jan 19, 2017 08:51
[2017-01-19] MEDS ORDERED: cloNIDine HCL 0.2 MG TAB PO PRN (09:00)
[2017-01-19] MEDS: SODIUM CHLORIDE 0.9% FLUSH 10 ML FLUSH IV FLUSH SCH ×2 (09:00→22:21)
[2017-01-19] MEDS ORDERED: ACETAMINOPHEN/HYDROcodone 325 MG/5 MG TAB PO PRN (09:00)
[2017-01-19] MEDS ORDERED: ENALAPRILAT 1.25 MG/ML VIAL IV PRN (11:00)
[2017-01-19] MEDS ORDERED: PRAVASTATIN SOD 40 MG TAB PO SCH (21:00)
[2017-01-19] MEDS: NIFEdipine 30 MG SUSTAINED RELEASE TAB PO SCH (22:20)
[2017-01-20] VITALS: BP 174/98; PULSE 55; RESP 20; TEMP 98.3; O2SAT 98
[2017-01-20 04:00] VITALS: BP 141/91; PULSE 56; RESP 20; TEMP 98.1; O2SAT 99
[2017-01-20 06:43] LABS: BICARBONATE 23.2 MEQ/L (21.0-32.0); POTASSIUM 3.8 MEQ/L (3.5-5.1)
[2017-01-20 08:00] VITALS: BP 160/96; PULSE 60; RESP 18; TEMP 98.2; O2SAT 99
[2017-01-20] MEDS: NIFEdipine 30 MG SUSTAINED RELEASE TAB PO SCH (08:34)
[2017-01-20] MEDS: CARVEDILOL 12.5 MG TAB PO SCH (08:34)
[2017-01-20] MEDS: CLOPIDOGREL 75 MG TAB PO SCH (08:34)
[2017-01-20] MEDS: ENALAPRIL MALEATE 10 MG TAB PO SCH (08:34)
[2017-01-20] MEDS: SODIUM CHLORIDE 0.9% FLUSH 10 ML FLUSH IV FLUSH SCH (08:34)
[2017-01-20] MEDS ORDERED: NIFE30TA8 PO (10:09)
--- NOTE | 2017-01-20 10:09 | HHI.DCPOC ---
Discharge Care Plan Diagnosis: (1) Hypertension (2) Cephalgia Goals to Promote Your Health * To prevent worsening of your condition and complications * To maintain your health at the optimal level Directions to Meet Your Goals Take your medications as prescribed Follow your dietary instruction Follow activity as directed Keep your appointments as scheduled Take your immunizations and boosters as scheduled If your symptoms worsen call your PCP, if no PCP go to Urgent Care Center or Emergency Room Smoking is Dangerous to Your Health. Avoid second hand smoke Call the 24-hour hour crisis hotline for domestic abuse at Erick Dillard MD Jan 20, 2017 10:09
--- NOTE | 2017-01-20 11:17 | HHI.PR ---
Subjective Remarks insisting on d/c wants to go fishing for "sheephead fish" says he has several records and wants to get into the newspaper again. Objective Vitals heart reg lung cta abd s/nt ext no edema Vital Signs Date Time Temp Pulse Resp B/P Pulse Ox O2 Delivery O2 Flow Rate FiO2 01/20/17 08:00 98.2 60 18 160/96 99 01/20/17 04:00 98.1 56 20 141/91 99 01/20/17 00:00 98 Room Air 01/20/17 00:00 98.3 55 20 174/98 98 01/19/17 20:15 62 01/19/17 20:00 98.5 58 20 154/105 99 01/19/17 18:00 97.9 63 16 179/98 100 01/19/17 16:00 98.0 59 19 149/98 100 01/19/17 16:00 59 01/19/17 14:00 57 01/19/17 13:00 59 01/19/17 12:00 98.2 59 11 133/78 100 01/19/17 12:00 59 01/19/17 01/19/17 01/20/17 15:00 23:00 07:00 Intake Total 1080 ml 480 ml 360 ml Output Total 550 ml Balance 530 ml 480 ml 360 ml Intake Oral 480 ml 480 ml 360 ml IV Total 600 ml Output Urine Total 550 ml # Voids 2 2 # Bowel Movements 0 Result Diagram: 01/18/17 1710 01/20/17 0556 Imaging Last [address] 01/18/17 0000 Signed Impressions: Service Date/Time: January 19:14 - CONCLUSION: No acute intracranial abnormality. Old right basal ganglia infarct. Small mucous retention cyst of the right maxillary sinus. Eduardo Nathan MD A/P Problem List: (1) Hypertensive urgency Status: Acute Plan: pt was on coreg and enalapril. clonidine added per pcp presented with htn urgency and h/a recent BG cva and left side weakness. no acute cva on this admission Pt offered to stay and have bp monitored for 24 more hrs. He declined and says he is going fishing today will d/c him on coreg/enalapril and procardia. f/u pcp this week for recheck. (2) CVA (cerebral vascular accident) Status: Chronic Plan: see above (3) History of stroke Status: Chronic Plan: Focal deficits. Continue medication and secondary prevention. (4) Hyperlipidemia Status: Chronic Plan: Continue medication. (5) Peripheral arterial disease Status: Chronic Plan: Continue secondary prevention. Erick Dillard MD Jan 20, 2017 11:17
[2017-01-20 12:00] VITALS: BP 155/96; PULSE 62; RESP 18; TEMP 98; O2SAT 100
== END 2017-01-20 11:20 | disposition home or self-care (01) ==
LOC: NEPE 15:46 → NEDA 20:30 → INTOOBSV 20:30 → HIMW 01-19 00:52 → N04A 01-19 16:54 → UNDODISIN 01-20 11:20
PROVIDERS: ADMIT Hospitalist; ATTEND Hospitalist
DX: I16.0 Hypertensive urgency (principal); E78.5 Hyperlipidemia, unspecified; I73.9 Peripheral vascular disease, unspecified; I10 Essential (primary) hypertension; R51 Headache; J34.1 Cyst and mucocele of nose and nasal sinus; M25.50 Pain in unspecified joint; J45.909 Unspecified asthma, uncomplicated; E78.00 Pure hypercholesterolemia, unspecified; K21.9 Gastro-esophageal reflux disease without esophagitis; I69.954 Hemiplegia and hemiparesis following unspecified cerebrovascular disease affecting left non-dominant side; Z87.891 Personal history of nicotine dependence; Z86.718 Personal history of other venous thrombosis and embolism; Z79.899 Other long term (current) drug therapy; Z79.02 Long term (current) use of antithrombotics/antiplatelets
CPT/HCPCS: 70450; 80048; 80307; 85025; 87641; 96374; 96375; 99285; G0378; J0360; J2270; J2405; J7050

== ENCOUNTER 2017-03-09 03:18 | Emergency (ER) | payer OTHER ==
[~2017-03-09] VITALS: Ht 172.7 cm; Wt 60.0 kg
[~2017-03-09 03:18] MED LIST changes: +NIFE30TA8 PO
[2017-03-09 03:19] VITALS: BP 219/118; PULSE 56; RESP 16; TEMP 98.8; O2SAT 100
--- NOTE | 2017-03-09 03:40 | PD ---
HPI Chief Complaint: Hypertension Time Seen by Provider: 03:33 Travel History International Travel<30 days: No Contact w/Intl Traveler<30days: No Traveled to known affect area: No History of Present Illness HPI 56-year-old male arrives to the ER complaining of headache. Location is right retro-orbital with radiation to the parietal occipital right scalp. The pain started while the patient was asleep. Pain at the onset was. He's had no fever or neck stiffness. He denies photophobia or phonophobia. No vomiting. He does not typically suffer from headaches. He notes his blood pressure was quite high at home. PFSH Past Medical History Asthma: Yes Blood Disorders: No Cancer: No Cardiac Catheterization: Yes Cardiovascular Problems: Yes (HTN) High Cholesterol: Yes Chemotherapy: No Cerebrovascular Accident: Yes (L SIDED WEAKNESS ) Diminished Hearing: No Deep Vein Thrombosis: Yes (pvd. S/P BLE STENTS X2 EACH) Endocrine: No Gastrointestinal Disorders: Yes GERD: Yes Genitourinary: No Hypertension: Yes Inguinal Hernia: Yes Musculoskeletal: No Neurologic: No Psychiatric: No Reproductive: No Respiratory: No Immunizations Current: No Radiation Therapy: No ?: Not Past Surgical History Abdominal Surgery: Yes (HERNIA INGINAL L) AICD: No Arteriovenous Shunt: No Coronary Stent: Yes (BARD LUMINEXX BILIARY STENT PLACED 07-12) Insulin Pump: No Joint Replacement: No Pacemaker: No Other Surgery: Yes (BARD LUMINEXX BILIARY STENT PLACED 07-12) Social History Alcohol Use: No Tobacco Use: No (quit 3 weeks ) Substance Use: No Allergies-Medications (Allergen,Severity, Reaction): Coded Allergies: Lasix (Verified Allergy, Severe, SWELLING, 03/09/17) Reported Meds & Prescriptions Reported Meds & Active Scripts Active Phenergan (Promethazine HCl) 25 Mg Tablet 25 Mg PO Q6H PRN Nifedipine ER 24 HR (Nifedipine) 30 Mg Tab 30 Mg PO BID Plavix (Clopidogrel Bisulfate) 75 Mg Tab 75 Mg PO DAILY Enalapril (Enalapril Maleate) 10 Mg Tab 20 Mg PO BID Simvastatin 10 Mg Tab 20 Mg PO HS Reported Carvedilol 12.5 Mg Tab 12.5 Mg PO BID Review of Systems Except as stated in HPI: all other systems reviewed are Neg Physical Exam Narrative GENERAL: 56-year-old male well-nourished well-developed SKIN: Focused skin assessment warm/dry. HEAD: Atraumatic. Normocephalic. EYES: Pupils equal and round. No scleral icterus. No injection or drainage. ENT: No nasal bleeding or discharge. Mucous membranes pink and moist. NECK: Trachea midline. No JVD. CARDIOVASCULAR: Regular rate and rhythm. No murmur appreciated. RESPIRATORY: No accessory muscle use. Clear to auscultation. Breath sounds equal bilaterally. GASTROINTESTINAL: Abdomen soft, non-tender, nondistended. Hepatic and splenic margins not palpable. MUSCULOSKELETAL: No obvious deformities. No clubbing. No cyanosis. No edema. NEUROLOGICAL: Awake and alert. No obvious cranial nerve deficits. Motor grossly within normal limits. Normal speech. PSYCHIATRIC: Appropriate mood and affect; insight and judgment normal. Data Data Last Documented VS Vital Signs Date Time Temp Pulse Resp B/P Pulse Ox O2 Delivery O2 Flow Rate FiO2 03/09/17 05:12 66 14 186/92 99 Room Air 03/09/17 03:19 98.8 Vital signs reviewed Orders Complete Blood Count With Diff (03/09/17 03:47) Basic Metabolic Panel (Bmp) (03/09/17 03:47) Prothrombin Time / Inr (Pt) (03/09/17 03:47) Act Partial Throm Time (Ptt) (03/09/17 03:47) Ct Brain W/O Iv Contrast(Rout) (03/09/17 03:47) Ecg Monitoring (03/09/17 03:47) Iv Access Insert/Monitor (03/09/17 03:47) Oximetry (03/09/17 03:47) Sodium Chloride 0.9% Flush (Ns Flush) (03/09/17 04:00) Prochlorperazine Inj (Compazine Inj) (03/09/17 04:00) Diphenhydramine Inj (Benadryl Inj) (03/09/17 04:00) Cta Brain W Iv Contrast W 3d (03/09/17 ) Iohexol 350 Inj (Omnipaque 350 Inj) (03/09/17 04:57) Labs Laboratory Tests Test 03/09/17 04:00 White Blood Count 6.0 TH/MM3 Red Blood Count 4.29 MIL/MM3 Hemoglobin 13.3 GM/DL Hematocrit 41.0 % Mean Corpuscular Volume 95.7 FL Mean Corpuscular Hemoglobin 31.1 PG Mean Corpuscular Hemoglobin 32.5 % Concent Red Cell Distribution Width 14.3 % Platelet Count 248 TH/MM3 Mean Platelet Volume 9.0 FL Neutrophils (%) (Auto) 61.7 % Lymphocytes (%) (Auto) 25.2 % Monocytes (%) (Auto) 8.7 % Eosinophils (%) (Auto) 3.1 % Basophils (%) (Auto) 1.3 % Neutrophils # (Auto) 3.7 TH/MM3 Lymphocytes # (Auto) 1.5 TH/MM3 Monocytes # (Auto) 0.5 TH/MM3 Eosinophils # (Auto) 0.2 TH/MM3 Basophils # (Auto) 0.1 TH/MM3 CBC Comment DIFF FINAL Differential Comment Prothrombin Time 11.4 SEC Prothromb Time International 1.0 RATIO Ratio Activated Partial 31.0 SEC Thromboplast Time Sodium Level 143 MEQ/L Potassium Level 3.8 MEQ/L Chloride Level 111 MEQ/L Carbon Dioxide Level 23.9 MEQ/L Anion Gap 8 MEQ/L Blood Urea Nitrogen 13 MG/DL Creatinine 1.19 MG/DL Estimat Glomerular Filtration 76 ML/MIN Rate Random Glucose 89 MG/DL Calcium Level 8.5 MG/DL [facility] Medical Decision Making Medical Screen Exam Complete: Yes Emergency Medical Condition: Yes Medical Record Reviewed: Yes Differential Diagnosis Hypertensive emergency, hypertensive urgency, migraine, tension headache, aneurysm, intracranial hemorrhage, or cranial mass Narrative Course CBC & BMP Diagram 03/09/17 04:00 Last [address] 03/09/17 0347 Signed Impressions: Service Date/Time: Thursday, March 09, 2017 04:29 - CONCLUSION: 1. No evidence of acute intracranial pathology. No masses are identified. 2. Old right basal ganglia infarct is unchanged Rey Coker MD The patient is resting comfortably and feels better, is alert and in no distress. The patients results and examination findings were discussed. The repeat examination is unremarkable and benign. The history, exam, diagnostic testing, and current condition do not suggest any significant pathology to warrant further testing, continued ED treatment, admission, or surgical evaluation at this point. The vital signs have been stable. The patient does not have uncontrollable pain, intractable vomiting, or other significant symptoms. The patient's condition is stable and appropriate for discharge. The patient will pursue further outpatient evaluation with a primary care physician or other designated or consulting physician as indicated in the discharge instructions. The patient expressed understanding and was agreeable with this plan. Diagnosis Primary Impression: Cephalgia Qualified Code: R51 - Nonintractable headache, unspecified chronicity pattern , unspecified headache type Additional Impression: Hypertension Qualified Code: I10 - Hypertension, unspecified type Referrals: DR KRAFT 2 days Additional Instructions: You have a choice when it comes to health care, and we are glad that you chose [facility]. Hopefully, we have met your expectations on today's visit. You are welcome to return to [facility] at any time, as we are committed to meeting the health care needs of our community. Med/Other Pt SpecificInfo: Prescription(s) given Scripts Promethazine (Phenergan)25 Mg Vesien18 Mg PO Q6H PRN (HEADACHE) #10 TAB Ref 0 Prov:Malick Mcgarry MD 03/09/17 Disposition: 01 DISCHARGE HOME Condition: Stable Malick Mcgarry MD Mar 09, 2017 03:40
[2017-03-09] MEDS ORDERED: diphenhydrAMINE HCL 50 MG/ML VIAL IVP ONE (04:00)
[2017-03-09] MEDS ORDERED: PROCHLORPERAZINE INJ 10 MG/2 ML VIAL IVP ONE (04:00)
[2017-03-09] MEDS ORDERED: SODIUM CHLORIDE 0.9% FLUSH 10 ML FLUSH IVF PRN (04:00)
[2017-03-09 04:09] LABS: AUTOMATED NEUTROPHIL # 3.7 TH/MM3 (1.8-7.7); BASOPHIL # 0.1 TH/MM3 (0-0.2); BASOPHIL % 1.3 % (0.0-2.0); EOSINOPHIL # 0.2 TH/MM3 (0-0.4); EOSINOPHIL % 3.1 % (0.0-4.0); HEMO FLAGS DIFF FINAL; LYMPH % 25.2 % (9.0-44.0); LYMPHOCYTE # 1.5 TH/MM3 (1.0-4.8); MEAN CELL VOLUME 95.7 FL (80.0-100.0); MEAN CORPUSCULAR HEMOGLOBIN 31.1 PG (27.0-34.0); MEAN CORPUSCULAR HGB CONC 32.5 % (32.0-36.0); MONO % 8.7 % (0.0-8.0); NEUT % 61.7 % (16.0-70.0); PLATELET COUNT 248 TH/MM3 (150-450); RED BLOOD COUNT 4.29 MIL/MM3 (4.50-5.90); RED CELL DISTRIBUTION WIDTH 14.3 % (11.6-17.2)
[2017-03-09 04:19] LABS: PROTHROMBIN TIME - PATIENT 11.4 SEC (9.8-11.6)
[2017-03-09 04:37] LABS: BICARBONATE 23.9 MEQ/L (21.0-32.0); POTASSIUM 3.8 MEQ/L (3.5-5.1)
--- NOTE | 2017-03-09 04:43 | RADRPT ---
EXAM DATE/TIME: 03/09/2017 04:29 [facility] COMPARISON: CT BRAIN W/O CONTRAST, January 18, 2017, 19:14. INDICATIONS : Cephalgia. RADIATION DOSE: 56.77 CTDIvol (mGy) MEDICAL HISTORY : Cerebrovascular disease. Hypertension. SURGICAL HISTORY : None. ENCOUNTER: Initial ACUITY: 1 day PAIN SCALE: 10/10 LOCATION: cranial TECHNIQUE: Multiple contiguous axial images were obtained of the head. Using automated exposure control and adj ustment of the mA and/or kV according to patient size, radiation dose was kept as low as reasonably a chievable to obtain optimal diagnostic quality images. DICOM format image data is available electro nically for review and comparison. FINDINGS: Noncontrast axial head CT demonstrates the ventricles to be normal in size and configuration with a n ormal sulcal pattern. No acute intracranial hemorrhage, acute cortical infarction, mass or midline sh ift is seen. There is old lacunar infarct involving the right basal ganglia Posterior fossa structure s are unremarkable. Bone windows are unremarkable. CONCLUSION: 1. No evidence of acute intracranial pathology. No masses are identified. 2. Old right basal ganglia infarct is unchanged Rey Coker MD on March 09, 2017 at 4:41 Board Certified Radiologist. This report was verified electronically.
[2017-03-09] MEDS ORDERED: IOHEXOL 350 MG/ML 10 ML VIAL (for RAD DIAG) IV ONE (04:57)
[2017-03-09 05:12] VITALS: BP 186/92; PULSE 66; RESP 14; O2SAT 99
--- NOTE | 2017-03-09 05:30 | RADRPT ---
EXAM DATE/TIME: 03/09/2017 04:33 [facility] COMPARISON: No previous studies available for comparison. INDICATIONS : Cephalgia. IV CONTRAST: 75 cc Omnipaque 350 (iohexol) IV RADIATION DOSE: 16.19 CTDIvol (mGy) MEDICAL HISTORY : Cerebrovascular disease. Hypertension. SURGICAL HISTORY : None. ENCOUNTER: Initial ACUITY: 1 day PAIN SCALE: 10/10 LOCATION: cranial TECHNIQUE: Volumetric scanning was performed using a multi-row detector CT scanner. The data was post processed with a variety of visualization algorithms including full volume maximum intensity projection, multi -planar sliding thin slab reformation, curved planar reformation, and surface rendering techniques. Using automated exposure control and adjustment of the mA and/or kV according to patient size, radiat ion dose was kept as low as reasonably achievable to obtain optimal diagnostic quality images. DICO M format image data is available electronically for review and comparison. FINDINGS: Examination of the anterior circulation demonstrates no evidence of aneurysm or vascular information. No intracranial stenosis is identified. The distal cerebral vessels fill normally. There is a hypopl astic A1 segment on the left. Examination of the posterior fossa demonstrates the right vertebral artery to be dominant. No aneurys m or vascular malformation is seen and no intracranial stenosis is identified. CONCLUSION: 1. Unremarkable CT angiography of the brain. Rey Coker MD on March 09, 2017 at 5:26 Board Certified Radiologist. This report was verified electronically.
[2017-03-09] MEDS ORDERED: PROM25TA10 PO (05:58)
== END 2017-03-09 06:17 | disposition home or self-care (01) ==
LOC: NEPC 03:18
DX: R51 Headache (principal); I10 Essential (primary) hypertension; I73.9 Peripheral vascular disease, unspecified; Z79.899 Other long term (current) drug therapy; Z87.891 Personal history of nicotine dependence
CPT/HCPCS: 70450; 70496; 80048; 85025; 85610; 85730; 96374; 96375; 99285; J0780; J1200; Q9967

== ENCOUNTER 2018-07-31 14:47 | Observation (INO) ==
[2018-07-31] MEDS ORDERED: Aspirin 325 MG Tablet PO ONE (15:17)
[2018-07-31] MEDS ORDERED: Heparin Drip 25,000 UNIT/250 ML BAG IV.CONT PRN (15:32)
[2018-07-31] MEDS ORDERED: Heparin 10,000 UNITS/10 ML Vial (for IV use) IV.PUSH STA (15:32)
--- NOTE | 2018-07-31 15:40 | XR ---
EXAM DATE: 07/31/2018 3:38 PM EST AGE/SEX: 57 years / Male INDICATIONS: Chest pain. CLINICAL DATA: This is the patient's initial encounter. Patient reports that signs and symptoms have been present for 4 - 6 days and indicates a pain score of 7/10. MEDICAL/SURGICAL HISTORY: None. None. COMPARISON: [facility] [place]ST SINGLE AP, 01/10/2017. . FINDINGS: A single AP view of the chest demonstrates the lungs to be symmetrically aerated without evidence of mass, infiltrate or effusion. The cardiomediastinal contours are unremarkable. Osseous structures a re intact. CONCLUSION: No acute cardiopulmonary disease. Electronically signed by: Reji Blum MD Board Certified Radiologist 07/31/2018 3:39 PM EST
[2018-07-31 16:01] LABS: Baso # (Auto) 0.1 th/mm3 (0.0-0.2); Baso % (Auto) 1.4 % (0.0-2.0); Eos # (Auto) 0.2 th/mm3 (0.0-0.4); Eos % (Auto) 3.3 % (0.0-4.0); Hematocrit 43.4 % (39.0-51.0); Hemoglobin 15.1 gm/dL (13.0-17.0); Lymph # (Auto) 1.5 th/mm3 (1.0-4.8); Mean Corpuscular HGB Conc 34.7 % (32.0-36.0); Mean Corpuscular Hemoglobin 32.8 pg (27.0-34.0); Mean Corpuscular Volume 94.6 fL (80.0-100.0); Mean Platelet Volume 9.2 fL (7.0-11.0); Mono # (Auto) 0.7 th/mm3 (0.0-0.9); Mono % (Auto) 10.2 % (0.0-8.0); Neut % (Auto) 62.1 % (16.0-70.0); Platelet Count 143 th/mm3 (150-450); Red Blood Count 4.59 mil/mm3 (4.50-5.90); Red Cell Distribution Width 15.7 % (11.6-17.2); White Blood Count 6.4 th/mm3 (4.0-11.0)
--- NOTE | 2018-07-31 16:06 | ED ---
HPI General Chief Complaint: Chest Pain Stated Complaint: PHY sent Time Seen by Provider: 07/31/18 15:15 Source: patient and family Mode of arrival: wheelchair Limitations: no limitations History of Present Illness HPI narrative: 57-year-old male who presents to the ED for evaluation of chest pain. Per patient he had chest pain about 2 days ago. Per patient he lasted about 20 minutes and then went away. Per patient has been battling with high blood pressure and takes multiple medications for his high blood pressure. Per patient he contacted his doctor today and the nurse recommended that he comes here to get evaluated for his chest pain. He has not taken anything for the chest pain. Denies any cardiac history. He does tell me that he has a history of smoking and has a history of high cholesterol. Takes multiple blood pressure medications. Per patient. Follows with Dr. Morales for cardiology. He denies any new changes on his medications. He denies taking any aspirin today. No nitroglycerin. Per patient he has no symptoms at this time. Related Data Home Medications Medication Instructions Recorded Confirmed alprazolam 0.25 mg PO BID PRN 04/09/18 07/31/18 aspirin [Aspirin Low Dose] 81 mg PO DAILY 04/09/18 07/31/18 carvedilol 25 mg PO BID 04/09/18 07/31/18 clonidine HCl 0.3 mg PO BID 04/09/18 07/31/18 clopidogrel 75 mg PO DAILY 04/09/18 07/31/18 enalapril maleate 20 mg PO BID 04/09/18 07/31/18 ergocalciferol (vitamin D2) 50,000 unit PO QWEEK 04/09/18 07/31/18 nifedipine 60 mg PO DAILY 04/09/18 07/31/18 ranitidine HCl 150 mg PO BID 04/09/18 07/31/18 rosuvastatin 10 mg PO DAILY 04/09/18 07/31/18 Previous Rx's Medication Instructions Recorded hydralazine 100 mg PO TID #90 tab 04/10/18 Allergies Allergy/AdvReac Type Severity Reaction Status Date / Time Penicillins Allergy Rash Verified 05/18/18 00:30 furosemide AdvReac Severe Swelling Verified 05/18/18 00:30 hydrochlorothiazide AdvReac Swelling Verified 05/18/18 00:30 [From Dyazide] triamterene [From Dyazide] AdvReac Swelling Verified 05/18/18 00:30 Review of Systems ROS: all other systems reviewed are negative [facility] Medical History Medical History CVA (cerebral vascular accident) (Acute) Former cigarette smoker (Acute) HLD (hyperlipidemia) (Acute) Hypertension (Acute) PAD (peripheral artery disease) (Acute) Social History Social History Substance History: No History of Abuse Second Hand Smoke Exposure: No Smoking Status: Former smoker Tobacco Type: Cigarettes Number of Pack-Years (if former smoker): 20 How Often Do You Have a Drink Containing Alcohol: Never Hx Recent Travel: No Immunization History Tetanus Immunization: <5 Years Exam Narrative Exam Narrative: GENERAL: Well appearing SKIN: Focused skin assessment warm/dry. HEAD: Atraumatic. Normocephalic. EYES: Pupils equal and round. No scleral icterus. No injection or drainage. ENT: No nasal bleeding or discharge. Mucous membranes pink and moist. Tongue is midline. No Uvula deviation. NECK: Trachea midline. No JVD. CARDIOVASCULAR: Regular rate and rhythm. No murmur appreciated. RESPIRATORY: No accessory muscle use. Clear to auscultation. Breath sounds equal bilaterally. GASTROINTESTINAL: Abdomen soft, non-tender, nondistended. Hepatic and splenic margins not palpable. MUSCULOSKELETAL: No obvious deformities. No clubbing. No cyanosis. No edema. Full range of motion of the upper and lower extremities bilaterally. 2+ pulses bilaterally. NEUROLOGICAL: Awake and alert. No obvious cranial nerve deficits. Motor grossly within normal limits. Normal speech. PSYCHIATRIC: Appropriate mood and affect; insight and judgment normal. Course Initial Documented Vital Signs Temperature 97.8 F 07/31/18 15:00 Pulse Rate 67 07/31/18 15:00 Respiratory Rate 16 07/31/18 15:00 Blood Pressure 145/75 H 07/31/18 15:00 Pulse Oximetry 100 07/31/18 15:00 Last Documented Vital Signs Temperature 98.0 F 08/01/18 07:29 Pulse Rate 63 08/01/18 07:29 Respiratory Rate 16 08/01/18 07:29 Blood Pressure 165/94 H 08/01/18 07:29 Pulse Oximetry 98 08/01/18 08:00 Medical Decision Making YOHANNES Attestation YOHANNES supervised visit: Yes Attestation: Dr. Karel Kennedy, have reviewed the advance practice practitioner's documentation and am in agreement, met with the patient face to face, made the diagnosis, and the medical decision making was done by me. *My assessment and Findings: Chest pain MDM Narrative Medical decision making narrative: 57-year-old male who presents to the ED for evaluation of chest pain. Patient was properly examined by myself and my attending Dr. Vinson. My attending Dr. Vinson looked at the EKG which did show some concerning changes. He himself spoke with Dr. Morales over the phone and after long discussion and after comparing the EKG with his old EKG in 2017 that decided that the patient should at this time admitted to the chest pain center if everything is negative. Something comes positive to start heparin and to admit to medicine with a consult to Dr. Morales to do heart cath. Labs and imaging were essentially unremarkable here. Patient is completely asymptomatic at this time. Because of this patient will be admitted to the chest pain center. Patient agrees and understands this plan. Case discussed with my attending Dr. Vinson who agrees with plan. Patient was admitted to the chest pain center by myself. Medical Screen Exam Complete: Yes Emergency Medical Condition: Yes Differential Diagnosis Differential Diagnosis: Chest pain versus ACS versus typical chest pain versus an STEMI Medical Records Medical records reviewed: Yes I reviewed the patient's medical records. Lab Data Lab results reviewed: Yes I reviewed the patient's lab results. Result diagrams: 07/31/18 15:33 07/31/18 15:33 Lab Results 07/31/18 07/31/18 07/31/18 Range/Units 15:33 15:33 15:35 WBC 6.4 (4.0-11.0) th/mm3 RBC 4.59 (4.50-5.90) mil/mm3 Hgb 15.1 (13.0-17.0) gm/dL Hct 43.4 (39.0-51.0) % MCV 94.6 (80.0-100.0) fL MCH 32.8 (27.0-34.0) pg MCHC 34.7 (32.0-36.0) % RDW 15.7 (11.6-17.2) % Plt Count 143 L (150-450) th/mm3 MPV 9.2 (7.0-11.0) fL Neut % (Auto) 62.1 (16.0-70.0) % Lymph % (Auto) 23.0 (9.0-44.0) % [place] % (Auto) 10.2 H (0.0-8.0) % Eos % (Auto) 3.3 (0.0-4.0) % Baso % (Auto) 1.4 (0.0-2.0) % Neut # (Auto) 4.0 (1.8-7.7) th/mm3 Lymph # (Auto) 1.5 (1.0-4.8) th/mm3 [place] # (Auto) 0.7 (0.0-0.9) th/mm3 Eos # (Auto) 0.2 (0.0-0.4) th/mm3 Baso # (Auto) 0.1 (0.0-0.2) th/mm3 WBC Differential . Differential Comment Auto diff final PT 11.3 (9.8-11.6) sec INR 1.1 Ratio APTT 32.0 H (23.4-31.7) sec Sodium 142 (136-145) meq/L Potassium 3.7 (3.5-5.1) meq/L Chloride 109 H (98-107) meq/L Carbon Dioxide 26.8 (21.0-32.0) meq/L Anion Gap 6 (5-15) meq/L BUN 12 (7-18) mg/dL Creatinine 1.37 H (0.60-1.30) mg/dL Estimated GFR 65 L (>89) mL/min Random Glucose 73 L (74-106) mg/dL Calcium 8.8 (8.5-10.1) mg/dL Total Bilirubin 0.4 (0.2-1.0) mg/dL AST 11 L (15-37) U/L ALT 15 (12-78) U/L Alkaline Phosphatase 119 H (45-117) U/L Total Creatine Kinase 42 (39-308) U/L Troponin I Less than 0.02 L (0.02-0.05) ng/mL Total Protein 7.5 (6.4-8.2) g/dL Albumin 3.7 (3.4-5.0) g/dL Lipase 333 (73-393) U/L 12/26/18 12/26/18 Range/Units 17:50 20:05 WBC (4.0-11.0) th/mm3 RBC (4.50-5.90) mil/mm3 Hgb (13.0-17.0) gm/dL Hct (39.0-51.0) % MCV (80.0-100.0) fL MCH (27.0-34.0) pg MCHC (32.0-36.0) % RDW (11.6-17.2) % Plt Count (150-450) th/mm3 MPV (7.0-11.0) fL Neut % (Auto) (16.0-70.0) % Lymph % (Auto) (9.0-44.0) % [place] % (Auto) (0.0-8.0) % Eos % (Auto) (0.0-4.0) % Baso % (Auto) (0.0-2.0) % Neut # (Auto) (1.8-7.7) th/mm3 Lymph # (Auto) (1.0-4.8) th/mm3 [place] # (Auto) (0.0-0.9) th/mm3 Eos # (Auto) (0.0-0.4) th/mm3 Baso # (Auto) (0.0-0.2) th/mm3 WBC Differential Differential Comment PT (9.8-11.6) sec INR Ratio APTT (23.4-31.7) sec Sodium (136-145) meq/L Potassium (3.5-5.1) meq/L Chloride (98-107) meq/L Carbon Dioxide (21.0-32.0) meq/L Anion Gap (5-15) meq/L BUN (7-18) mg/dL Creatinine (0.60-1.30) mg/dL Estimated GFR (>89) mL/min Random Glucose (74-106) mg/dL Calcium (8.5-10.1) mg/dL Total Bilirubin (0.2-1.0) mg/dL AST (15-37) U/L ALT (12-78) U/L Alkaline Phosphatase (45-117) U/L Total Creatine Kinase 48 (39-308) U/L Troponin I Less than 0.02 L Less than 0.02 L (0.02-0.05) ng/mL Total Protein (6.4-8.2) g/dL Albumin (3.4-5.0) g/dL Lipase (73-393) U/L Imaging Data Attestation: I personally reviewed and interpreted this imaging study as follows : Radiologist's impression: Chest X-Ray 07/31/18 15:17 CONCLUSION: No acute cardiopulmonary disease. Myocardial Perfusion Scan Nuc Med 08/01/18 00:00 CONCLUSION: 1. Negative examination. ECG Data Attestation: I personally reviewed and interpreted this ECG as follows: Interpretation: EKG shows sinus rhythm. No new changes from the EKG done in 2017. Read by me and attending. Discharge Plan Discharge Disposition Patient Disposition: ED Admit(ED Internal Use Only) Discharge Condition Condition: Stable Discharge Order Discharge Orders: Discharge Order (Routine); Ordered 08/01/18 Ordered By: Penelope Trevino ED Use Only Admit Order (Routine); Ordered 07/31/18 Ordered By: Hima Oliver Discharge Details Diagnosis: Chest pain, rule out acute myocardial infarction Physicians Team ED Provider: Scott Vinson ED Midlevel Provider: Hima Oliver Primary Care Provider: UNKNOWN, Attending Provider: Rey Pereyra Status ED Status: Left Department Discharge Information Discharge Date/Time: 07/31/18 18:31
[2018-07-31 16:14] LABS: Alanine Aminotransferase 15 U/L (12-78); Albumin 3.7 g/dL (3.4-5.0); Anion Gap 6 meq/L (5-15); Aspartate Aminotransferase 11 U/L (15-37); Blood Urea Nitrogen 12 mg/dL (7-18); Calcium 8.8 mg/dL (8.5-10.1); Carbon Dioxide 26.8 meq/L (21.0-32.0); Chloride 109 meq/L (98-107); Glomerular Filtration Rate 65 mL/min (>89); Glucose,Random 73 mg/dL (74-106); Lipase 333 U/L (73-393); Potassium 3.7 meq/L (3.5-5.1); Sodium 142 meq/L (136-145)
[2018-07-31 16:18] LABS: Alkaline Phosphatase 119 U/L (45-117); Total Protein 7.5 g/dL (6.4-8.2)
[2018-07-31 16:19] LABS: INR 1.1 Ratio; Prothrombin Time 11.3 sec (9.8-11.6)
[2018-07-31 16:21] LABS: Creatine Kinase 42 U/L (39-308)
[2018-07-31] MEDS ORDERED: Acetaminophen 500 MG Tablet PO PRN (16:34)
[2018-07-31 19:27] LABS: Creatine Kinase 48 U/L (39-308)
[2018-08-01 07:31] VITALS: BP 165/94; PULSE 63; RESP 16; TEMP 98; O2SAT 98
--- NOTE | 2018-08-01 07:48 | P.HPCA ---
History of Present Illness Primary Care Physician: Dr. 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 Reports nurse at Dr Morales's office called him regarding elevated blood pressure identified from a home monitoring device which uploads vitals to their office. Reports blood pressure 180/100s on multiple occasions and was directed to go to the ER. In regards to chest pain reports one episode chest discomfort 3 days ago while walking his dog. Location substernal. Characterized as a gradual burning discomfort. Moderate in severity. Radiation to left arm. Total duration 15 minutes. Discomfort gradually resolved. No relieving factors. No associated symptoms of nausea, vomiting, dyspnea, or diaphoresis. Denies similar pain in the past. No current chest pain. No known coronary artery disease, known peripheral arterial disease and CVA. Endorses taking blood pressure medication as ordered. No recent illness, fever, or injury. No known COPD. Notices intermittent wheezing and productive cough, not worse in last few weeks. Past cardiac testing Remote cardiac stress testing completed Dr. Morales's office. Denies ever requiring cardiac catheterization. No known coronary artery disease or MS. 04/09/18 Peripheral angiography with intervention (Dr. Morales) conclusions: 1. Mild infrarenal descending aortic atherosclerosis. 2. Several right superficial femoral artery and common femoral and infrapopliteal disease. 3. Accessible balloon angioplasty of right common femoral and posterior tibial arteries. 4. Successful orbital tissue atherectomy, angioplasty and drug- coated balloon of the right superficial femoral artery. Social history Known hypertension and hyperlipidemia. No known diabetes or coronary artery disease. Former 1/2 pack/day smoker, quitting December 2016 after CVA. Family history Noncontributory for early onset cardiovascular disease. Father CABG age 62, no known heart issues prior to CABG. - Diagnosis (1) Chest pain, rule out acute myocardial infarction (2) Hypertension (3) Hyperlipidemia (4) PAD (peripheral artery disease) Review of Systems All other systems reviewed negative except as stated [facility] - History History Provided By: Patient - Medical History Medical History: Medical History (Last Updated 08/01/18 @ 10:45 by AMBER Canales) CVA (cerebral vascular accident) Former cigarette smoker HLD (hyperlipidemia) Hypertension PAD (peripheral artery disease) - Tobacco History Second Hand Smoke Exposure: No Tobacco Use In Past 30 Days: No Smoking Status: Former smoker Tobacco Type: Cigarettes Number of Pack Years (if former smoker): 20 - Alcohol History How Often Do You Have a Drink Containing Alcohol: Never - Substance Use History Substance History: No History of Abuse - Travel History History of Recent Travel: No Recent Travel in the [place] Within the Last 8 Weeks: No Recent Travel Out of the Country Within the Last 8 Weeks: No - Immunization History Tetanus Immunization: <5 Years Medications and Allergies Active Medications: Active Medications Acetaminophen (Tylenol) 500 mg PO Q4H PRN PRN Reason: HEADACHE Hydrocodone Bitart/Acetaminophen ([place] 7.5/325) 1 tab PO Q4H PRN PRN Reason: PAIN SCALE 1 TO 7 Aspirin (Ecotrin) 81 mg PO DAILY [facility] Carvedilol (Coreg) 25 mg PO BID [facility] Clonidine HCl (Catapres) 0.1 mg PO Q6H PRN PRN Reason: SBP >165 OR DBP > 110 Last Admin: 08/01/18 01:04 Dose: 0.1 mg Clopidogrel Bisulfate (Plavix) 75 mg PO DAILY [facility] Hydralazine HCl (Apresoline) 100 mg PO TID [facility] Nifedipine (Procardia Xl) 60 mg PO DAILY [facility] Non-Formulary Medication (Enalapril Maleate [Enalapril Maleate]) 20 mg PO BID [facility] Non-Formulary Medication (Ranitidine Hcl [Ranitidine Hcl]) 150 mg PO BID [facility] Non-Formulary Medication (Rosuvastatin [Rosuvastatin]) 10 mg PO DAILY [facility] Ondansetron HCl (Zofran Inj) 4 mg IV.PUSH Q6H PRN PRN Reason: NAUSEA OR VOMITING Sodium Chloride (Ns Flush) 2 ml IV.FLUSH PRN PRN PRN Reason: FLUSH AFTER USING IV ACCESS Sodium Chloride (Ns Flush) 2 ml IV.FLUSH BID [facility] Last Admin: 07/31/18 20:12 Dose: 2 ml Allergies Allergy/AdvReac Type Severity Reaction Status Date / Time Penicillins Allergy Rash Verified 05/18/18 00:30 furosemide AdvReac Severe Swelling Verified 05/18/18 00:30 hydrochlorothiazide AdvReac Swelling Verified 05/18/18 00:30 [From Dyazide] triamterene [From Dyazide] AdvReac Swelling Verified 05/18/18 00:30 Home Medications Medication Instructions Recorded Confirmed Type alprazolam 0.25 mg PO BID PRN 04/09/18 07/31/18 History aspirin [Aspirin Low Dose] 81 mg PO DAILY 04/09/18 07/31/18 History carvedilol 25 mg PO BID 04/09/18 07/31/18 History clonidine HCl 0.3 mg PO BID 04/09/18 07/31/18 History clopidogrel 75 mg PO DAILY 04/09/18 07/31/18 History enalapril maleate 20 mg PO BID 04/09/18 07/31/18 History ergocalciferol (vitamin D2) 50,000 unit PO QWEEK 04/09/18 07/31/18 History nifedipine 60 mg PO DAILY 04/09/18 07/31/18 History ranitidine HCl 150 mg PO BID 04/09/18 07/31/18 History rosuvastatin 10 mg PO DAILY 04/09/18 07/31/18 History Exam Vital signs: Vital Signs 07/31/18 15:00 07/31/18 15:09 07/31/18 15:17 Temperature 97.8 F Pulse Rate 67 61 60 Respiratory Rate 16 20 16 Blood Pressure 145/75 H 178/86 H 178/62 H Pulse Oximetry 100 07/31/18 16:23 07/31/18 17:49 07/31/18 20:00 Temperature 98.5 F 98.2 F Pulse Rate 60 59 L 58 L Respiratory Rate 16 16 16 Blood Pressure 134/74 156/82 H 161/83 H Pulse Oximetry 100 99 98 07/31/18 23:18 08/01/18 00:40 08/01/18 01:55 Temperature 98.4 F Pulse Rate 59 L 55 L Respiratory Rate 16 Blood Pressure 170/97 H 168/110 H Pulse Oximetry 99 08/01/18 04:00 08/01/18 07:29 Temperature 98.9 F 98.0 F Pulse Rate 64 63 Respiratory Rate 14 16 Blood Pressure 158/87 H 165/94 H Pulse Oximetry 95 98 Intake & Output 07/31/18 08/01/18 08/01/18 18:59 06:59 18:59 Intake Total 240 / 240 Output Total 300 / 300 Balance 240 / 240 -300 / -300 Weight 58.967 kg Intake: Oral 240 / 240 Output: Urine 300 / 300 Other: Date of Last Bowel Movement 07/31/18 Weight On Admission 58.967 kg Narrative: GENERAL: Alert WN, WD, NAD, pleasant, thin, -Emirati male HEAD: NC, AT EYES: Sclera clear, conjunctiva without injection, pupils equal and round ENT: Mucous membranes pink and moist NECK: Supple, no masses, trachea midline CV: RRR, without murmur, rub, gallop, no JVD. No carotid bruits. Chest wall nontender to palpation. RESP: Diminished lungs throughout bilateral, faint expiratory wheeze, no rhonchi , symmetrical chest rise, nonlabored, able to speak in full sentences ABD: Soft, NT, ND, no masses, positive bowel tones EXT: Pulses +2x4, no dependent edema MS: Normal tone x4 extremities, nontender, no obvious deformities, full range of motion NEURO: CN II through CN XII grossly intact, motor strength 5/5 PSYCH: A+O x3, pleasant affect, appropriate speech, mood, insight and judgment SKIN: Normal turgor, normal texture, no lesions, no rashes, decreased lower extremity hair distribution Results 07/31/18 15:33 07/31/18 15:33 Cardiac Enzymes 07/31/18 07/31/18 07/31/18 Range/Units 15:33 17:50 20:05 AST 11 L (15-37) U/L Troponin I Less than 0.02 L Less than 0.02 L Less than 0.02 L (0.02-0.05) ng/mL Coagulation 07/31/18 Range/Units 15:35 PT 11.3 (9.8-11.6) sec APTT 32.0 H (23.4-31.7) sec CBC 07/31/18 Range/Units 15:33 WBC 6.4 (4.0-11.0) th/mm3 RBC 4.59 (4.50-5.90) mil/mm3 Hgb 15.1 (13.0-17.0) gm/dL Hct 43.4 (39.0-51.0) % Plt Count 143 L (150-450) th/mm3 Neut # (Auto) 4.0 (1.8-7.7) th/mm3 Lymph # (Auto) 1.5 (1.0-4.8) th/mm3 [place] # (Auto) 0.7 (0.0-0.9) th/mm3 Eos # (Auto) 0.2 (0.0-0.4) th/mm3 Baso # (Auto) 0.1 (0.0-0.2) th/mm3 Comprehensive Metabolic Panel 07/31/18 Range/Units 15:33 Sodium 142 (136-145) meq/L Potassium 3.7 (3.5-5.1) meq/L Chloride 109 H (98-107) meq/L Carbon Dioxide 26.8 (21.0-32.0) meq/L BUN 12 (7-18) mg/dL Creatinine 1.37 H (0.60-1.30) mg/dL Calcium 8.8 (8.5-10.1) mg/dL AST 11 L (15-37) U/L ALT 15 (12-78) U/L Alkaline Phosphatase 119 H (45-117) U/L Total Protein 7.5 (6.4-8.2) g/dL Albumin 3.7 (3.4-5.0) g/dL Intake and Output 07/31/18 08/01/18 08/01/18 22:59 06:59 14:59 Intake Total 240 / 240 Output Total 300 / 300 Balance 240 / 240 -300 / -300 Intake: Oral 240 / 240 Output: Urine 300 / 300 Other: Date of Last Bowel Movement 07/31/18 Weight 58.967 kg Weight On Admission 58.967 kg - Imaging and Cardiology Imaging: Impressions Chest X-Ray 07/31/18 15:17 CONCLUSION: No acute cardiopulmonary disease. EKG interpretations - EKG EKG results cardiology: sinus rhythm (ST deviation and moderate T wave abnormality-unchanged from previous EKGs.) Caprini VTE Risk Assessment Caprini VTE Risk Assessment: No/Low Risk (score <= 1) Caprini Risk Assessment Model: Point Value = 1 Point Value = 2 Point Value = 3 Point Value = 5 Age 41-60 Minor surgery BMI > 25 kg/m2 Swollen legs Varicose veins or History of unexplained or recurrent spontaneous Oral contraceptives or hormone replacement Sepsis (< 1 month) Serious lung disease, including pneumonia (< 1 month) Abnormal pulmonary function Acute myocardial infarction Congestive heart failure (< 1 month) History of inflammatory bowel disease Medical patient at bed rest Age 61-74 Arthroscopic surgery Major open surgery (> 45 min) Laparoscopic surgery (> 45 min) Malignancy Confined to bed (> 72 hours) Immobilizing plaster cast Central venous access Age >= 75 History of VTE Family history of VTE Factor V Leiden Prothrombin [id number] Lupus anticoagulant Anticardiolipin antibodies Elevated serum homocysteine Heparin-induced thrombocytopenia Other congenital or acquired thrombophilia Stroke (< 1 month) Elective arthroplasty Hip, pelvis, or leg fracture Acute spinal cord injury (< 1 month) Prophylaxis Regimen: Total Risk Factor Score Risk Level Prophylaxis Regimen 0-1 Low Early ambulation 2 Moderate Order ONE of the following: *Sequential Compression Device (SCD) *Heparin 5000 units SQ BID 3-4 Higher Order ONE of the following medications: *Heparin 5000 units SQ TID *Enoxaparin/Lovenox 40 mg SQ daily (WT < 150 kg, CrCl > 30 mL/min) *Enoxaparin/Lovenox 30 mg SQ daily (WT < 150 kg, CrCl > 10-29 mL/min) *Enoxaparin/Lovenox 30 mg SQ BID (WT < 150 kg, CrCl > 30 mL/min) AND/OR *Sequential Compression Device (SCD) 5 or more Highest Order ONE of the following medications: *Heparin 5000 units SQ TID (Preferred with Epidurals) *Enoxaparin/Lovenox 40 mg SQ daily (WT < 150 kg, CrCl > 30 mL/min) *Enoxaparin/Lovenox 30 mg SQ daily (WT < 150 kg, CrCl > 10-29 mL/min) *Enoxaparin/Lovenox 30 mg SQ BID (WT < 150 kg, CrCl > 30 mL/min) AND *Sequential Compression Device (SCD) Assessment and Plan - Assessment (1) Chest pain, rule out acute myocardial infarction Code(s): R07.9 - Chest pain, unspecified Status: Acute Plan: [facility] chest pain center. ACS rule out 3 sets of EKGs and cardiac enzymes. Baseline EKG unchanged from previous EKGs showing ST elevation T wave inversions anterior laterally. Proceed with Lexiscan. If unremarkable, plan is to discharge home with follow-up with primary care provider and box office agent , Dr. Morales. (2) Hypertension Code(s): I10 - Essential (primary) hypertension Status: Chronic Plan: Continue to monitor. Blood pressure normalized overnight. Continue carvedilol , nifedipine, and enalapril. (3) Hyperlipidemia Code(s): E78.5 - Hyperlipidemia, unspecified Status: Chronic Plan: Continue rosuvastatin. (4) PAD (peripheral artery disease) Code(s): I73.9 - Peripheral vascular disease, unspecified Status: Chronic Plan: Continue aspirin 81mg and Plavix. H&P: Quality - VTE Deep Vein Thrombosis/Pulmonary Embolism Present on Admission: Yes (2) Hypertension Qualifiers: Hypertension type: unspecified Qualified Code(s): I10 - Essential (primary) hypertension (3) Hyperlipidemia Qualifiers: Hyperlipidemia type: unspecified Qualified Code(s): E78.5 - Hyperlipidemia, unspecified
--- NOTE | 2018-08-01 08:11 | ECG ---
Date Performed: 07/31/2018 Time Performed: 15:11:22 PTAGE: 57 years EKG: SINUS BRADYCARDIA ST DEVIATION AND MODERATE T-WAVE ABNORMALITY, CONSIDER ANTERIOR ISCHEMIA ABNORMAL ECG Since the PREVIOUS TRACING , no significant change noted PREVIOUS TRACIN01/10/2017 14.49 DOCTOR: Caitlin Galicia Interpretating Date/Time 08/01/2018 08:10:56
--- NOTE | 2018-08-01 08:11 | ECG ---
Date Performed: 07/31/2018 Time Performed: 19:44:22 PTAGE: 57 years EKG: SINUS BRADYCARDIA ST DEVIATION AND MODERATE T-WAVE ABNORMALITY, CONSIDER ANTERIOR ISCHEMIA ABNORMAL ECG Since the PREVIOUS TRACING , no significant change noted PREVIOUS TRACIN07/31/2018 15.11 DOCTOR: Caitlin Galicia Interpretating Date/Time 08/01/2018 08:10:48
[2018-08-01] MEDS ORDERED: Aspirin 325 MG Tablet PO SCH (09:00)
[2018-08-01] MEDS ORDERED: Carvedilol 12.5 MG Tablet PO SCH (09:00)
[2018-08-01] MEDS ORDERED: Famotidine 20 MG Tablet PO SCH (09:00)
[2018-08-01] MEDS ORDERED: Regadenoson Inj 0.4 MG/5 ML Syringe IV.PUSH ONE (11:24)
--- NOTE | 2018-08-01 12:55 | NM ---
EXAM DATE: 08/01/2018 12:31 PM EST AGE/SEX: 57 years / Male INDICATIONS:Angina. . Chest pain. CLINICAL DATA: This is the patient's initial encounter. Patient reports that signs and symptoms have been present for 2 days and indicates a pain score of 4/10. MEDICAL/SURGICAL HISTORY: Hypercholesterolemia. Hypertension. Peripheral artery disease. Str nemo. Ex-smoker. None. COMPARISON: [facility], MRA CAROTIDS W CONTRAST, 12/24/2016. . DOSE: 8.6 mCi Tc 99m Myoview at rest 26.7 mCi [id number] at stress 0.4 mg Lexiscan STRESS SYMPTOMS: Short of breath. EJECTION FRACTION: 62 % TECHNIQUE: The patient underwent pharmacologic stress with infusion of prescribed dose. Continuous ECG tracing was monitored during stress. Gated SPECT imaging was performed after stress and conventi onal SPECT imaging was performed at rest. The examination was performed on a SPECT/CT scanner, both attenuation and non-corrected datasets were reviewed. FINDINGS: Distribution: The maximum perfused segment at stress is in the anterior wall. Perfusion Study: The pattern of perfusion at stress is within normal limits. Gated Study: There are intact wall motion and wall thickening without hypokinetic or dyskinetic segm ents. The ejection fraction is calculated at 62%. RISK CATEGORY: Low (<1% Annual Mortality Rate) CONCLUSION: 1. Negative examination. Electronically signed by: Reji Blum MD Board Certified Radiologist 08/01/2018 12:54 PM EST
--- NOTE | 2018-08-01 18:03 | ECG ---
Date Performed: 07/31/2018 Time Performed: 23:16:58 PTAGE: 57 years EKG: Sinus rhythm MODERATE T-WAVE ABNORMALITY, CONSIDER ANTERIOR ISCHEMIA ABNORMAL ECG Since PREVIOUS TRACING , no significant change noted PREVIOUS TRACIN07/31/2018 19.44 DOCTOR: Caitlin Galicia Interpretating Date/Time 08/01/2018 18:02:20
--- NOTE | 2018-08-01 18:04 | TR ---
Date Performed: 08/01/2018 Time Performed: 11:16:30 DOCTOR: Caitlin Galicia DRUG LIST: CLINICAL HISTORY: REASON FOR TEST: REASON FOR ENDING: OBSERVATION: CONCLUSION: Lexiscan stress test was performed under standard four minute protocol. Radionuclid e was injected one minute prior to ending the test. No electrocardiographic abormalities were present to suggest ischemia. Nuclear imaging and interpretation are pending. COMMENTS: Lexiscan stress test was performed under standard four minute protocol. Radionuclide was injected one minute prior to ending the test. No electrocardiographic abormalities were present t o suggest ischemia. Nuclear imaging and interpretation are pending.
== END 2018-08-01 14:00 | disposition home or self-care (01) ==
LOC: NEPE 14:47 → NEPHCDU 14:47 → NEPE 17:20 → UNDODISOB 17:28
PROVIDERS: ADMIT Internal Medicine Cardiovascular Disease; ATTEND Internal Medicine Cardiovascular Disease
CPT/HCPCS: 71010; 71045; 78452; 80053; 82550; 83690; 84484; 85025; 85610; 85730; 93005; 93017; 99285; A9502; G0378; J2785; Q9969